=== PATIENT | female | born 1940 | race Two or more races ===

== ENCOUNTER 2021-08-01 20:19 | Emergency (ER) | payer OTHER ==
[~2021-08-01] VITALS: Ht 160 cm; Wt 49.9 kg
[2021-08-01 22:45] VITALS: BP 156/62
== END 2021-08-01 23:23 | disposition home or self-care (01) ==
LOC: EDBD 20:19 → ER 20:28
DX: S01.111A Laceration without foreign body of right eyelid and periocular area, initial encounter (principal); N18.9 Chronic kidney disease, unspecified; W01.0XXA Fall on same level from slipping, tripping and stumbling without subsequent striking against object, initial encounter; Y93.89 Activity, other specified; Y92.89 Other specified places as the place of occurrence of the external cause; Y99.8 Other external cause status
CPT/HCPCS: 70450; 72125; 93005

== ENCOUNTER 2024-03-26 10:44 | Inpatient (IN) | payer OTHER ==
[~2024-03-26] VITALS: Ht 162.6 cm; Wt 50.9 kg
[~2024-03-26 10:44] MED LIST: METF-372 PO; PREG50CA PO; SIMV20TA20 PO
--- NOTE | 2024-03-26 11:03 | ED.PDOC ---
Altered Mental Status HPI Comments 83y F who presents to the ED via EMS for chief complaint of ALOC. Per EMS, pt lives with family and pt son went to check up on her and states he found her altered and called EMS. EMS upon arrival, checked pt vitals and noted pt had Accu check of 135 but noted pt had 02 sat in the 70's% and pt was placed on 15 L via nrb and brought to the ED. Pt has noted GCS of 13 upon arrival to the ED but is not answering questions at this time despite being alert and oriented. Pt son states pt has been having flu-like symptoms with noted cough and congestion for the past 3-4 days but has been to evaluated by any provider for it yet. Pt family also states pt had fall 1 days prior with no noted loss of consciousness. . Pt has noted history of dementia Time Seen by MD: 10:58 Primary Care Provider: ALEK Reviewed Notes: Nurses Notes Allergies: Coded Allergies: NO KNOWN ALLERGIES (Unverified , 08/01/21) Information Source: Emergency Med Personnel Mode of Arrival: EMS Brought in by: EMS Past Medical History PAST MEDICAL HISTORY: CKF, Dementia Surgical History: Denies all surgeries QUAIL FARMER History: No Pertinent QUAIL FARMER History Family History Family History: Reviewed,noncontributory to illness Social History Smoker: Non-Smoker Alcohol: Denies ETOH Use Drugs: Denies Drug Use Lives In: Home Constitutional: reports: malaise, weakness; denies: chills, diaphoresis, fatigue, fever, sweats, others EENTM: denies: blurred vision, double vision, ear bleeding, ear discharge, ear drainage, ear pain, ear ringing, eye pain, eye redness, hearing loss, mouth pain, mouth swelling, nasal discharge, nose bleeding, nose congestion, nose pain, photophobia, tearing, throat pain, throat swelling, voice changes, others Respiratory: denies: cough, hemoptysis, orthopnea, SOB at rest, shortness of breath, SOB with excertion, stridor, wheezing, others Cardiovascular: denies: chest pain, dizzy spells, diaphoresis, Dyspnea on exertion, edema, irregular heart beat, left arm pain, lightheadedness, palpitations, PND, syncope, others Gastrointestinal: denies: abdomen distended, abdominal pain, blood streaked bowels, constipated, diarrhea, dysphagia, difficulty swallowing, hematemesis, melena, nausea, poor appetite, poor fluid intake, rectal bleeding, rectal pain, vomiting, others Genitourinary: denies: abnormal vagina bleeding, burning, dyspareunia, dysuria, flank pain, frequency, hematuria, incontinence, pain, , vagina discharge, urgency, others Neurological: denies: dizziness, fainting, headache, left sided numbness, left sided weakness, numbness, paresthesia, pre-existing deficit, right sided numbness, right sided weakness, seizure, speech problems, tingling, tremors, weakness, others Musculoskeletal: denies: back pain, gout, joint pain, joint swelling, muscle pain, muscle stiffness, neck pain, others Integumetry: denies: bruises, change in color, change in hair/nails, dryness, laceration, lesions, lumps, rash, wounds, others Allergic/Immunocompromised: denies: Difficulty Healing, Frequent Infections, H raghav, Itching, others Hematologic/Lymphatic: denies: anemia, blood clots, easy bleeding, easy bruising, swollen glands, others Endocrine: denies: excessive hunger, excessive sweating, excessive thirst, excessive urination, flushing, intolerance to cold, intolerance to heat, unexplained weight gain, unexplained weight loss, others Psychiatric: denies: anxiety, bipolar disorder, depression, hopeless, panic disorder, schizophrenia, sleepless, suicidal, others All Other Systems: Reviewed and Negative Physical Exam General Appearance: Moderate Distress HEENT: Normal ENT Inspection, Pharynx Normal, TMs Normal Neck: Full Range of Motion, Non-Tender, Normal, Normal Inspection Respiratory: Chest Non-Tender, Lungs Clear, No Accessory Muscle Use, No Respiratory Distress, Normal Breath Sounds Cardiovascular: No Edema, No JVD, No Murmur, No Gallop, Normal Peripheral Pulses, Regular Rate/Rhythm Breast Exam: Deferred Gastrointestinal: No Organomegaly, Non Tender, No Pulsatile Mass, Normal Bowel Sounds, Soft Genitalia: Deferred Pelvic: Deferred Rectal: Deferred Extremities: No pedal edema Musculoskeletal : Apperance: Normal Neurologic: Disoriented Cerebellar Function: NOT DONE Reflexes: NOT DONE Skin: Dry, Normal Color, Warm Lymphatic: No Adenopathy Was a procedure done? Was a procedure done?: No Differential Diagnosis (ALOC) Differential Diagnosis: Dehydration, Hypoglycemia, Encephalopathy, Sepsis, Hypoxemia, Renal Failure Other Differential Diagnosis , metabolic encephalopathy, acute respiratory failure, viral syndrome, UTI, COVID, Influenza A and B X-Ray, Labs, Meds, VS Vital Signs Date Time Temp Pulse Resp B/P (MAP) Pulse Ox O2 Delivery O2 Flow Rate FiO2 03/26/24 16:00 111 28 115/48 (70) 100 03/26/24 14:00 108 28 100/47 (64) 100 03/26/24 13:20 99.8 03/26/24 12:38 127 03/26/24 12:15 99.4 03/26/24 12:03 129 28 97 Non-Rebreather 15 N/A 03/26/24 12:03 129 28 147/62 (90) 98 03/26/24 11:39 102.8 127 31 120/51 (74) 95 102.8 03/26/24 10:54 125 03/26/24 10:44 98.4 122 16 140/62 (88) 98 Lab Test 03/26/24 16:12 03/26/24 10:59 Range/Units POC Glucose 188 H 70-106 mg/dl White Blood Count 1.2 *L 4.4-10.8 10^3/uL Red Blood Count 3.42 L 4.0-5.20 10^6/uL Hemoglobin 10.4 L 12.2-16.2 g/dL Hematocrit 32.2 L 36.0-46.0 % Mean Corpuscular Volume 94.1 80.0-100.0 fL Mean Corpuscular Hemoglobin 30.4 28.0-32.0 pg Mean Corpuscular Hemoglobin Concent 32.3 32.0-36.0 g/dL Red Cell Distribution Width 16.8 H 11.8-14.3 % Platelet Count 173 140-450 10^3/uL Mean Platelet Volume 9.2 6.9-10.8 fL Neutrophils (%) (Auto) 37.0-80.0 % Lymphocytes (%) (Auto) 10.0-50.0 % Monocytes (%) (Auto) 0.0-12.0 % Basophils (%) (Auto) 0.0-2.0 % Neutrophils # (Auto) 1.6-8.6 10 ^3/uL Lymphocytes # (Auto) 0.4-5.4 10 ^3/uL Monocytes # (Auto) 0-1.3 10 ^3/uL Differential Total Cells Counted 100.0 100 Neutrophils % (Manual) 79 37.0-80.0 Band Neutrophils % (Manual) 0 Lymphocytes % (Manual) 18 10.0-50.0 Monocytes % (Manual) 2 0-12 Eosinophils % (Manual) 0 0-7 Basophils % (Manual) 0 0.0-2.0 Metamyelocytes % (manual) 1 Myelocytes % (Manual) 0 Promyelocytes % (Manual) 0 Blast Cells % (Manual) 0 Nucleated Red Blood Cells 1.0 % Reactive Lymphocytes 0 Platelet Estimate Adequate Ovalocytes P Sodium Level 140 136-145 mmol/L Potassium Level 4.6 3.5-5.1 mmol/L Chloride Level 110 H 98-107 mmol/L Carbon Dioxide Level 19 L 20-31 mmol/L Anion Gap 11 5-15 Blood Urea Nitrogen 75 H 9-23 mg/dL Creatinine 3.11 H 0.550-1.02 mg/dL Glomerular Filtration Rate Calc 14 >90 mL/min BUN/Creatinine Ratio 24.1 H 10.0-20.0 Serum Glucose 208 H 74-106 mg/dL Calcium Level 10.2 8.7-10.4 mg/dL Troponin I High Sensitivity 846 *H </=34 ng/L Plasma/Serum Blood Alcohol < 3.0 <10 mg/dL Current Medications Medications (Trade) Dose Ordered Sig/Michael Route Start Time Stop Time Status Last Admin Acetaminophen (Tylenol Suppository) 650 mg ONCE ONCE AR 03/26/24 11:30 03/26/24 11:33 DC 03/26/24 12:15 Enoxaparin Sodium (Lovenox) 70 mg ONCE ONCE SC 03/26/24 14:15 03/26/24 14:16 DC 03/26/24 14:15 Ceftriaxone Sodium 50 ml @ 100 mls/hr ONCE ONCE IV 03/26/24 14:15 03/26/24 14:44 DC 03/26/24 14:15 Azithromycin 250 ml @ 125 mls/hr ONCE ONCE IV 03/26/24 14:15 03/26/24 16:14 DC 03/26/24 14:15 CHEST RADIOGRAPH IMPRESSION: Multifocal airspace disease. Patient disoriented. Vitals stable. Unable to get a good history. Moving all extremities. Chest x-ray reveals pneumonia. Has fever. Cardiac marker elevated. Establish intravenous access. Was given fluids. Was given Rocephin. Was given azithromycin. Cardiac marker elevated. BUN creatinine elevated. ABG. Metabolic acidosis. Reviewed her history. Waiting for family. EKG reviewed shows chronic changes. CT of the head reviewed does not show any acute changes. Time of 1ST Reevaluation: 11:30 Reevaluation 1ST: Unchanged Patient Education/Counseling: Diagnosis, Treatment Family Education/Counseling: No Family Present Additional Information - I reviewed the following notes from patient's past medical encounters: - The following tests were ordered, and results were reviewed by me: (Labs, X- Ray, EKG): EKG x1, influenza A and B, COVID, BMP, blood alcohol, CT head without contrast, UA,CBC, troponin x1 - Additional information was gathered from interviewing the following independent Historian: (Family, Other Providers, EMT): EMS - I reviewed and agreed with the following test results read by other provider: (X-ray, CT, US): radiologist - I discussed treatments and results with medical personnel and: (consultants, family): none Departure 1 Departure Time of Disposition: 14:10 Impression: Primary Impression: Metabolic encephalopathy Additional Impressions: Pneumonia Qualified Codes: J18.9 - Pneumonia, unspecified organism Demand ischemia Disposition: ADMITTED INPATIENT Admit to: Med Surg Condition: Guarded Critical Care Note Critical Care Time?: No Stability Stability form required: No Heart Score Heart Score: Heart Score Response (Comments) Value History N/A 0 EKG N/A 0 Age N/A 0 Risk Factors N/A 0 Troponin N/A 0 Total 0 I personally scribed for EVELIN CUNNINGHAM MD (YOVANY) on 03/26/24 at 11:03. Electronically submitted by Greg Goodson ([facility]). I personally scribed for EVELIN CUNNINGHAM MD (YOVANY) on 03/26/24 at 11:15. Electronically submitted by Greg VIEYRA). I personally scribed for EVELIN CUNNINGHAM MD (YOVANY) on 03/26/24 at 11:38. Electronically submitted by Greg VIEYRA). EVELIN CUNNINGHAM MD Mar 26, 2024 11:03
[2024-03-26 11:24] LABS: Hemoglobin 10.4 g/dL (12.2-16.2); Mean Corpuscular Hemoglobin 30.4 pg (28.0-32.0); Red Blood Cells 3.42 10^6/uL (4.0-5.20)
--- NOTE | 2024-03-26 11:25 | DVH ---
CHEST RADIOGRAPH Indication: sob Technique: Single frontal view of the chest was obtained COMPARISON: None FINDINGS: Lines and Tubes: None Lungs: Multifocal airspace disease. Pleura: No effusion. No pneumothorax. Cardiomediastinal contours: Unremarkable Bones: Unremarkable IMPRESSION: Multifocal airspace disease.
[2024-03-26 11:26] LABS: Hematocrit 32.2 % (36.0-46.0); Mean Corpuscular Hgb Conc. 32.3 g/dL (32.0-36.0); Mean Corpuscular Volume 94.1 fL (80.0-100.0); Platelet Count (auto) 173 10^3/uL (140-450); Red Cell Distribution Width 16.8 % (11.8-14.3)
[2024-03-26 11:33] LABS: Potassium 4.6 mmol/L (3.5-5.1); Sodium 140 mmol/L (136-145)
[2024-03-26 11:34] LABS: Anion Gap 11 (5-15)
[2024-03-26 11:35] LABS: Calcium 10.2 mg/dL (8.7-10.4)
[2024-03-26 11:37] LABS: Carbon Dioxide 19 mmol/L (20-31); Chloride 110 mmol/L (98-107)
[2024-03-26 11:38] LABS: White Blood Cell 1.2 10^3/uL (4.4-10.8)
[2024-03-26 11:39] LABS: Band Neutrophils % (manual) 0; Basophils % (manual) 0 (0.0-2.0); Blast Cells 0; Eosinophils % (manual) 0 (0-7); Myelocytes % 0; Promyelocytes % 0; Reactive Lymphocytes 0
[2024-03-26 11:40] LABS: BUN/Creatinine Ratio 24.1 (10.0-20.0); Blood Urea Nitrogen 75 mg/dL (9-23); Glucose 208 mg/dL (74-106)
[2024-03-26 11:42] LABS: Blood Alcohol < 3.0 mg/dL (<10)
[2024-03-26 12:03] VITALS: PULSE 129; RESP 28; O2SAT 97
[2024-03-26] MEDS: ACETAMINOPHEN 650 MG RECT SUPP PR ONE (12:15)
[2024-03-26 13:20] LABS: Lymphocytes % (manual) 18 (10.0-50.0); Metamyelocytes % 1; Monocytes % (manual) 2 (0-12)
[2024-03-26 13:21] LABS: Ovalocytes P; Platelet Estimate Adequate
--- NOTE | 2024-03-26 13:43 | DVH ---
EXAM: CT HEAD WITHOUT CONTRAST HISTORY: altered COMPARISON: HEAD WITHOUT CONTRAST on DOS: 08/01/21, CERVICAL WITHOUT CONTRAST on DOS: 08/01/21 TECHNIQUE: Axial images were obtained and reformatted in coronal and sagittal planes. All CT scans at this medical facility are performed using dose modulation techniques as appropriate t o a performed exam including the following: Automated exposure control was utilized; adjustment of th e MA and/or KV according to patient size; and use of iterative reconstruction technique. CT Dose: CTDI volume is 51 mGy. Dose-length product is 900 mGy*cm FINDINGS: Supratentorial Region: No evidence for large acute territorial ischemia. No intracranial hemorrhage is noted. Posterior Fossa: No acute abnormality. Brainstem: Unremarkable. Sellar/Suprasellar Region: Unremarkable. Ventricles, Cisterns, Sulci: Age-appropriate. Orbits: Unremarkable. Paranasal Sinuses: Unremarkable. Mastoid Air Cells: Unremarkable. Vasculature: Unremarkable. Bones/Soft Tissues: No acute abnormality. Other: None. IMPRESSION: 1. No acute intracranial process.
[2024-03-26] MEDS: cefTRIAXone 1GM/50ML D5W 50 ML IV ONE (14:15)
[2024-03-26] MEDS: AZITHROMYCIN 500MG/ 250ML 250 ML IV ONE (14:15)
[2024-03-26] MEDS: ENOXAPARIN SOD 80 MG/0.8ML SYRINGE SC ONE (14:15)
[2024-03-26] MEDS ORDERED: NITROGLYCERIN 0.4 MG SL TAB SL PRN (17:00)
[2024-03-26] MEDS ORDERED: DOCUSATE SOD 100 MG CAP PO PRN (17:00)
[2024-03-26] MEDS ORDERED: HYDROcodone-ACET 5/325MG TAB PO PRN (17:00)
[2024-03-26] MEDS: methylPREDNISolone SOD SUCC 125 MG/2 ML VL IV ONE (17:00)
[2024-03-26] MEDS ORDERED: ONDANSETRON HCL 4 MG/2 ML VIAL IV PRN (17:00)
[2024-03-26] MEDS ORDERED: MORPHINE SULFATE INJ 2 MG/ml SYRG IV PRN (17:00)
[2024-03-26] MEDS ORDERED: DEXTROSE (50%) 50ML SYRG IV PRN (17:00)
--- NOTE | 2024-03-26 17:07 | DVHHP2 ---
History of Present Illness Reason for Visit: Acute respiratory failure with hypoxia History of Present Illness The patient is a 83-year-old female with past medical history of chronic kidney disease, dementia, diabetes mellitus, and hypertension who presented to [facility] ED for evaluation of altered level of consciousness. Patient's sons reports he went to check up on his mother and found her altered and called EMS. When EMS arrived on the scene, patient was hypoxic O2 saturation in the 70s and was placed on 15 L non-rebreather and brought to our facility ED. Patient's son reports symptoms started from him and spread to the whole family including his mother with flu-like symptoms, nonproductive cough, nasal congestion for the past 3-4 days. Patient was seen and evaluated in the ED, laboratory data shows WBC 1.2, platelets 173, sodium 140, potassium 0.6, BUN 75, creatinine 3.11, GFR 14, glucose 208, troponin 846, blood pressure 147/62, heart rate 129 trending down to 110, temperature 102.8 F trending down to 99 0.8 F, O2 saturation 98% on non-rebreather. Chest x-ray revealing multifocal airspace disease. Patient was started on IV antibiotic regimen azithromycin, please see medication orders section in the computer. On my assessment, son at bedside, patient denies chest pain, no dizziness, diaphoresis, currently on oxygen, no diarrhea, no nausea, no vomiting, no chills. Patient was admitted for further evaluation and medical management. Past Medical History CKF, Dementia, DM, HTN, Past Surgical History Denies all surgeries Family History Reviewed, noncontributory to the management of this case. Past Social History The patient lives at home, denies smoking, alcohol or illicit drugs abuse. Review of Systems Constitutional: Yes: Weakness, Malaise; No: Fever, Chills, Sweats, Other Eyes: No: Pain, Vision change, Conjunctivae inflammation, Eyelid inflammation, Other, Redness ENT: No: Ear pain, Ear discharge, Nose pain, Nose discharge, Nose congestion, Mouth pain, Mouth swelling, Throat pain, Throat swelling, Other Respiratory: Cough, Shortness of breath, SOB with excertion, Other (SOB at rest); No: Dry, Wheezing, Hemoptysis, Pleuritic Pain, Sputum, Wheezing Cardiovascular: No: Chest Pain, Palpitations, Orthopnea, Paroxysmal Noc. Dyspnea, Edema, Lt Headedness, Other Gastrointestinal: No: Nausea, Vomiting, Abdominal Pain, Diarrhea, Constipation, Melena, Hematochezia, Other Genitourinary: No Dysuria, No Frequency, No Incontinence, No Hematuria, No Retention, No Other Musculoskeletal: No: other, neck pain, shoulder pain, arm pain, back pain, hand pain, leg pain, foot pain Skin: No: Rash, Lesions, Jaundice, Bruising, Other Neurological: No: Weakness, Numbness, Incoordination, Change in speech, Confusion, Seizures, Other Allergies: Coded Allergies: NO KNOWN ALLERGIES (Unverified , 08/01/21) Exam Vital Signs Vital Signs Date Time Temp Pulse Resp B/P (MAP) Pulse Ox O2 Delivery O2 Flow Rate FiO2 03/26/24 13:20 99.8 03/26/24 12:38 127 03/26/24 12:03 28 97 Non-Rebreather 15 N/A 03/26/24 12:03 147/62 (90) General Appearance: Alert, Oriented X3, Cooperative, No acute distress HEENT: Atraumatic, PERRLA, EOMI, Mucous membr. moist/pink Respiratory: Normal air movement, Other (Diminished breath sounds) Cardiovascular: Regular rate, Normal S1, Normal S2, No murmurs Abdominal: Normal bowel sounds, Soft, No tenderness, No hepatospenomegaly, No masses Extremities: No clubbing, No cyanosis, No edema, Normal pulses, No tenderness/swelling Skin: No rashes, No breakdown, No significant lesion Neuro: Normal speech, Normal tone, Sensation intact, Cranial nerves 3-12 NL, Reflexes 2+, Other (Generalized weakness) Psych/Mental Status: Mental status NL, Mood NL Labs/Xrays Labs Test 03/26/24 16:12 03/26/24 10:59 Range/Units POC Glucose 188 H 70-106 mg/dl White Blood Count 1.2 *L 4.4-10.8 10^3/uL Red Blood Count 3.42 L 4.0-5.20 10^6/uL Hemoglobin 10.4 L 12.2-16.2 g/dL Hematocrit 32.2 L 36.0-46.0 % Mean Corpuscular Volume 94.1 80.0-100.0 fL Mean Corpuscular Hemoglobin 30.4 28.0-32.0 pg Mean Corpuscular Hemoglobin Concent 32.3 32.0-36.0 g/dL Red Cell Distribution Width 16.8 H 11.8-14.3 % Platelet Count 173 140-450 10^3/uL Mean Platelet Volume 9.2 6.9-10.8 fL Neutrophils (%) (Auto) 37.0-80.0 % Lymphocytes (%) (Auto) 10.0-50.0 % Monocytes (%) (Auto) 0.0-12.0 % Basophils (%) (Auto) 0.0-2.0 % Neutrophils # (Auto) 1.6-8.6 10 ^3/uL Lymphocytes # (Auto) 0.4-5.4 10 ^3/uL Monocytes # (Auto) 0-1.3 10 ^3/uL Differential Total Cells Counted 100.0 100 Neutrophils % (Manual) 79 37.0-80.0 Band Neutrophils % (Manual) 0 Lymphocytes % (Manual) 18 10.0-50.0 Monocytes % (Manual) 2 0-12 Eosinophils % (Manual) 0 0-7 Basophils % (Manual) 0 0.0-2.0 Metamyelocytes % (manual) 1 Myelocytes % (Manual) 0 Promyelocytes % (Manual) 0 Blast Cells % (Manual) 0 Nucleated Red Blood Cells 1.0 % Reactive Lymphocytes 0 Platelet Estimate Adequate Ovalocytes P Sodium Level 140 136-145 mmol/L Potassium Level 4.6 3.5-5.1 mmol/L Chloride Level 110 H 98-107 mmol/L Carbon Dioxide Level 19 L 20-31 mmol/L Anion Gap 11 5-15 Blood Urea Nitrogen 75 H 9-23 mg/dL Creatinine 3.11 H 0.550-1.02 mg/dL Glomerular Filtration Rate Calc 14 >90 mL/min BUN/Creatinine Ratio 24.1 H 10.0-20.0 Serum Glucose 208 H 74-106 mg/dL Calcium Level 10.2 8.7-10.4 mg/dL Troponin I High Sensitivity 846 *H </=34 ng/L Plasma/Serum Blood Alcohol < 3.0 <10 mg/dL PATIENT: ZORA THURSTON ACCT: [id number] UNIT: [id number] : 1940 LOC: ER ROOM / BED: / AGE / SEX: 83 / F ADM STATUS: REG ER SERVICE 1051 ORDERING PHYSICIAN: EVELIN CUNNINGHAM MD PROCEDURE(s): HWOCT - HEAD WITHOUT CONTRAST REASON: altered ORDER NUMBER(s): [id number], ACCESSION NUMBER(s): [id number] EXAM: CT HEAD WITHOUT CONTRAST HISTORY: altered COMPARISON: HEAD WITHOUT CONTRAST on DOS: 08/01/21, CERVICAL WITHOUT CONTRAST on DOS: 08/01/21 TECHNIQUE: Axial images were obtained and reformatted in coronal and sagittal planes. All CT scans at this medical facility are performed using dose modulation techniques as appropriate to a performed exam including the following: Automated exposure control was utilized; adjustment of the MA and/or KV according to patient size; and use of iterative reconstruction technique. CT Dose: CTDI volume is 51 mGy. Dose-length product is 900 mGy*cm FINDINGS: Supratentorial Region: No evidence for large acute territorial ischemia. No intracranial hemorrhage is noted. Posterior Fossa: No acute abnormality. Brainstem: Unremarkable. Sellar/Suprasellar Region: Unremarkable. Ventricles, Cisterns, Sulci: Age-appropriate. Orbits: Unremarkable. Paranasal Sinuses: Unremarkable. Mastoid Air Cells: Unremarkable. Vasculature: Unremarkable. Bones/Soft Tissues: No acute abnormality. Other: None. IMPRESSION: 1. No acute intracranial process. ORDERING PHYSICIAN: EVELIN CUNNINGHAM MD PROCEDURE(s): CXRP - CHEST PORTABLE REASON: sob ORDER NUMBER(s): [id number], ACCESSION NUMBER(s): [id number] CHEST RADIOGRAPH Indication: sob Technique: Single frontal view of the chest was obtained COMPARISON: None FINDINGS: Lines and Tubes: None Lungs: Multifocal airspace disease. Pleura: No effusion. No pneumothorax. Cardiomediastinal contours: Unremarkable Bones: Unremarkable IMPRESSION: Multifocal airspace disease. Assessment/Plan Assessment/Plan Metabolic encephalopathy Leukopenia Pneumonia, unspecified organism Demand ischemia Generalized weakness Acute on chronic renal failure Acute respiratory failure with hypoxia Diabetes mellitus with hyperglycemia Plan 1. Admit to telemetry unit 2. Breathing treatment 3. Pain control management 4. IV antibiotic management 5. Management of fluids and electrolytes 6. Consultation for pulmonology/nephrology 7. Diagnostic test chest x-ray 8. DVT prophylaxis -on heparin 9. Repeat labs CBC, CMP in a.m. 10. Home medication reviewed and reconciled 11. Continue with current medical management 12. Treatment plan discussed with patient and RN. Patient verbalized understanding. Plan discussed with: Patient, Other (RN) My Orders Orders - GIOVANY PISANO DNP Procedure Category Date Status Time Azithromycin 500mg/ PHA 03/27/24 Verified 250ml (Zithromax 50 10:00 Ceftriaxone Ivpb PHA 03/27/24 Verified Rocephin 09:00 Methylprednisolone PHA 03/26/24 Verified Sod Succ (Solu Medrol 17:00 Methylprednisolone PHA 03/26/24 Verified Sod Succ (Solu Medrol 22:00 Heparin Sodium PHA 03/26/24 Verified (Porcine) 22:00 *Consult CONS 03/26/24 Verified / 16:54 *[facility] CONS 03/26/24 Verified -[place] 16:54 Famotidine Injection PHA 03/26/24 Verified (Pepcid Injection) 22:00 Consistent DIET 03/26/24 Verified Carb(Ccho)Diabetes Dinner Glucose Blood PHA 03/26/24 Verified (Accu-Chek Comfort 20:00 Moderate Insulin Ss PHA 03/26/24 Verified 20:00 Dextrose 50% Syringe PHA 03/26/24 Verified 17:00 Admit ADMIT 03/26/24 Verified 16:54 Allergies JUAN M 03/26/24 Verified 16:54 Code Status CODE 03/26/24 Verified 16:54 Sodium Chloride Lock PHA 03/26/24 Verified (Saline Lock Ns) 22:00 Oxygen Per Hour RT 03/26/24 Verified 16:54 Hydrocodone-Acet PHA 03/26/24 Verified 5/325mg Tab ([place] 17:00 Ondansetron Hcl PHA 03/26/24 Verified (Zofran) 17:00 Docusate Sodium PHA 03/26/24 Verified Capsule (Colace 17:00 Fall Risk Precautions JUAN M 03/26/[address] 16:54 Complete Blood Count LAB 03/27/24 Verified 04:00 Comprehensive LAB 03/27/24 Verified Metabolic Panel 04:00 Condition: Serious JUAN M 03/26/24 Verified 16:54 Acetaminophen Tablet PHA 03/26/24 Verified (Tylenol Tablet) 17:00 Sequential JUAN M 03/26/24 Verified Compression Device Nitroglycerin PHA 03/26/24 Verified Sublingual (Ntrostat 17:00 Morphine Sulfate PHA 03/26/24 Verified Injection 17:00 Notify Of Changes [facility] 03/26/24 Verified From Base 16:54 Exhauster For [facility] 03/26/24 Verified 24 Hours 16:54 Emergency Dysrhythmia [facility] 03/26/24 Verified Protocol 16:54 Rhythm Strips Once [facility] 03/26/24 Verified Every Shift 16:54 Oxygen By Nasal RT 03/26/24 Verified Cannula 16:54 Troponin-I Hs LAB 03/26/24 Verified 16:54 Troponin-I Hs LAB 03/26/24 Verified 22:45 Problem List: (1) Metabolic encephalopathy (2) Leukopenia (3) Acute respiratory failure with hypoxia (4) Generalized weakness (5) Demand ischemia (6) Pneumonia, unspecified organism (7) Acute on chronic renal failure (8) Diabetes mellitus with hyperglycemia Date of Service: Mar 26, 2024 Billing Provider: GIOVANY PISANO DNP Common Visit Codes: [id number] INP/OBS CARE (HIGH) GIOVANY PISANO DNP Mar 26, 2024 17:07
--- NOTE | 2024-03-26 17:11 | DVHINCON2 ---
Date Seen: Mar 26, 2024 Referring Physician MD Burak Reason for Consultation NSTEMI History of Present Illness This is an 83-year-old female patient who presents to emergency room with chief complaint of altered level of mentation. The patient lives with her son and his . According to the son who was at bedside, the family has been sick since . The patient began having symptoms of generalized weakness, decreased appetite, and fever since 03/23/24 (3 days). He mentioned that yesterday the patient was found on the living room floor and started showing signs of confusion. Today, the patient became even more altered and began having slurred speech which prompted the family to have the patient come to the emergency room. Upon emergency room arrival, a twelve lead electrocardiogram reveals sinus tachycardia with right bundle branch block. Cardiology is now being consulted for elevated troponin. Initial troponin level of 846ng/L. Significant past medical history includes hypertension, type 2 diabetes mellitus, uterine prolaps e, arthritis, and gout. Past Medical History Past medical history reviewed. No other significant than mentioned above. Past Surgical History Denies Family History Family history reviewed. Social History Denies the use of tobacco, alcohol or illicit drugs. Allergies: Coded Allergies: NO KNOWN ALLERGIES (Unverified , 08/01/21) Home Meds Home medications reviewed. Review of Systems Constitutional: Generalized weakness Ears, Nose, & Throat: No symptom reported Eyes: No symptom reported Neurological: Altered level of mentation, slurred speech Pulmonary/Respiratory: No symptoms reported Cardiovascular: No symptom reported Gastrointestinal: No symptom reported Genitourinary: No symptom reported Musculoskeletal: No symptom reported Skin: No symptom reported Psychiatric: No symptom reported Endocrine: No symptom reported Hematologic/Lymphatic: No symptom reported Vital Signs Vital Signs Date Time Temp Pulse Resp B/P (MAP) Pulse Ox O2 Delivery O2 Flow Rate FiO2 03/26/24 13:20 99.8 03/26/24 12:38 127 03/26/24 12:03 28 97 Non-Rebreather 15 N/A 03/26/24 12:03 147/62 (90) Physical Exam General Appearance: Cooperative. Well-developed. Well-nourished. No acute distress. Pulmonary/Respiratory: Diminished lung sounds throughout, on 15 L non-re breather at time of assessment Cardiovascular/Chest: Regular rate and rhythm. Peripheral Pulses: 2+ Radial (R). 2+ Radial (L). 2+ Pedal (R). 2+ Pedal (L) Abdominal Exam: Normal bowel sounds. Ankle Exam: Negative ankle edema Lower extremities: Negative lower extremity edema Neuro/Mental Status: A/OX1, confused Thoughts/Psych: Deferred Appearance: No acute distress. Skin Exam: Normal inspection. Normal color. Warm and dry. Labs/Diagnostic Data Labs Test 03/26/24 16:12 03/26/24 10:59 Range/Units POC Glucose 188 H 70-106 mg/dl White Blood Count 1.2 *L 4.4-10.8 10^3/uL Red Blood Count 3.42 L 4.0-5.20 10^6/uL Hemoglobin 10.4 L 12.2-16.2 g/dL Hematocrit 32.2 L 36.0-46.0 % Mean Corpuscular Volume 94.1 80.0-100.0 fL Mean Corpuscular Hemoglobin 30.4 28.0-32.0 pg Mean Corpuscular Hemoglobin Concent 32.3 32.0-36.0 g/dL Red Cell Distribution Width 16.8 H 11.8-14.3 % Platelet Count 173 140-450 10^3/uL Mean Platelet Volume 9.2 6.9-10.8 fL Neutrophils (%) (Auto) 37.0-80.0 % Lymphocytes (%) (Auto) 10.0-50.0 % Monocytes (%) (Auto) 0.0-12.0 % Basophils (%) (Auto) 0.0-2.0 % Neutrophils # (Auto) 1.6-8.6 10 ^3/uL Lymphocytes # (Auto) 0.4-5.4 10 ^3/uL Monocytes # (Auto) 0-1.3 10 ^3/uL Differential Total Cells Counted 100.0 100 Neutrophils % (Manual) 79 37.0-80.0 Band Neutrophils % (Manual) 0 Lymphocytes % (Manual) 18 10.0-50.0 Monocytes % (Manual) 2 0-12 Eosinophils % (Manual) 0 0-7 Basophils % (Manual) 0 0.0-2.0 Metamyelocytes % (manual) 1 Myelocytes % (Manual) 0 Promyelocytes % (Manual) 0 Blast Cells % (Manual) 0 Nucleated Red Blood Cells 1.0 % Reactive Lymphocytes 0 Platelet Estimate Adequate Ovalocytes P Sodium Level 140 136-145 mmol/L Potassium Level 4.6 3.5-5.1 mmol/L Chloride Level 110 H 98-107 mmol/L Carbon Dioxide Level 19 L 20-31 mmol/L Anion Gap 11 5-15 Blood Urea Nitrogen 75 H 9-23 mg/dL Creatinine 3.11 H 0.550-1.02 mg/dL Glomerular Filtration Rate Calc 14 >90 mL/min BUN/Creatinine Ratio 24.1 H 10.0-20.0 Serum Glucose 208 H 74-106 mg/dL Calcium Level 10.2 8.7-10.4 mg/dL Troponin I High Sensitivity 846 *H </=34 ng/L Plasma/Serum Blood Alcohol < 3.0 <10 mg/dL Assessment NSTEMI, likely type II Rule out acute CVA Rule out structural heart disease Acute respiratory failure Hypertension RONNIE versus CKD Type 2 diabetes mellitus Arthritis Plan/Recommendation We will continue with the following plan/recommendations (Dr. Claire): Case discussed with . We will proceed with obtaining a transthoracic echocardiogram to evaluate cardiac function. Elevated troponin level likely secondary to demand mismatch ischemia from underlying disease process. We can not fully exclude NSTEMI type 1 at this time. We will continue with trending troponin level and keeping the patient on cardiac surveillance. Notify cardiology team immediately for any ECG changes. Antibiotics per primary care team. Pending rapid influenza and COVID swab. Thank you for allowing us to care for this patient. Please call with any questions or concerns. Critical care time spent: 43 minutes This medical document was created using an electronic medical record system with voice recognition software and computerized dictation system. Although this document has been carefully reviewed, there might still be some phonetic and typographical errors. Occasional wrong-word or ``sound-alike substitutions may have occurred due to the inherent limitations of voice recognition software. These areas are purely typographical due to imperfections of the software programs and do not reflect any compromise in the patient's medical care. Please read the chart carefully and recognize, using context, where these substitutions have occurred. Plan discussed with: PatientCatarino Date of Service: Mar 26, 2024 Billing Provider: RAJ CLAIRE MD Cardiology Common Codes: [id number] INP/OBS CARE (High) Cardiology Consultation Codes: [id number] CONSULT <45MIN [facility] Mar 26, 2024 17:11
--- NOTE | 2024-03-26 18:21 | ECG ---
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
[2024-03-26 18:43] LABS: Lactic Acid w/Reflex 3.5 mmol/L (0.4-2.0)
[2024-03-26] MEDS: InsuLIN REG 1unit/0.01ml Soln (100units/ml) SC SCH (20:00)
[2024-03-26] MEDS: ACCU-CHEK COMFORT CURVE STRIP VI SCH (21:06)
[2024-03-26 21:42] LABS: Rapid Influenza A Negative (Negative); Rapid Influenza B Negative (Negative)
[2024-03-26 21:43] LABS: COVID19 ANTIGEN SOFIA FIA NEGATIVE (NEGATIVE)
[2024-03-26] MEDS: FAMOTIDINE (10MG/ML) 2ML VL IV SCH (23:09)
[2024-03-26] MEDS: SODIUM CHLOR 0.9% PF (SALINE LOCK) 10ML VIAL/SYR IV SCH (23:14)
[2024-03-26] MEDS: methylPREDNISolone SOD SUCC 40 MG/ML VL IV SCH (23:16)
[2024-03-26] MEDS: HEPARIN SODIUM (PORCINE) 5000 UNITS/ML 1ML VIAL SC SCH (23:24)
--- NOTE | 2024-03-26 23:48 | DVHINCON2 ---
Date of service: Mar 26, 2024 Referring Physician EZRA Perez Reason for Consultation Hypoxia History of Present Illness 83 year old woman history of chronic kidney disease, dementia, diabetes mellitus type 2, hypertension who presented with altered mental status. She was found to be hypoxic. She had a pulse oximetry reading of 70%. He was initiated on 15 L non-rebreather. She was brought to the emergency department by EMS. Everyone in her family was having flu-like symptoms. Nonproductive cough. Nasal congestion for the last 3-4 days. Chest x-ray was notable for multifocal airspace opacities. She was initiated on IV antibiotics. Pulmonary consultation is called due to multifocal pneumonia and acute hypoxic respiratory failure. Review of systems: 14 point review of systems unable to be obtained due to patient's history of dementia and altered mental status. Past medical history: Chronic kidney disease, dementia, diabetes mellitus type 2, hypertension Past surgical history: Denies all surgeries. Medications: Reviewed Allergies: No known drug allergies. Family history: No family history of premature CAD. No family history of lung disease Social history: Nonsmoker. No alcohol or illicit drug use. Allergies: Coded Allergies: NO KNOWN ALLERGIES (Unverified , 08/01/21) Home Meds Reported Medications Pregabalin (Lyrica) 50 Mg Cap, 25 MG PO BID for 30 Days, #60 03/27/24 Simvastatin (Simvastatin) 20 Mg Tab, 1 TAB PO DAILY for 100 Days, #100 03/27/24 Metformin Hydrochloride (Metformin Hcl) 1,000 Mg Tab, 1 TAB PO DAILY for 100 Days, #100 03/27/24 Lisinopril (Lisinopril) 40 Mg Tab, 40 MG PO DAILY for 30 Days, MG 03/27/24 Allopurinol (Allopurinol) 300 Mg Tab, 300 MG PO DAILY, TAB 03/27/24 Empagliflozin (Jardiance) 25 Mg Tab, 12.5 MG PO DAILY, TAB 03/27/24 Trospium Chloride (Trospium Chloride) 20 Mg Tab, 20 MG PO HS, TAB 03/27/24 Amlodipine Besylate (Amlodipine Besylate) 2.5 Mg Tab, 1 TAB PO DAILY, #30 TAB 5 Refills 03/27/24 Glipizide (Glipizide) 10 Mg Tab, 10 MG PO, TAB 03/27/24 Current Medications Current Medications Medications (Trade) Dose Ordered Sig/Michael Route PRN Reason Start Time Stop Time Status Last Admin Azithromycin 250 ml @ 125 mls/hr DAILY IV 03/27/24 10:00 Ceftriaxone Sodium 50 ml @ 100 mls/hr DAILY@09 IV 03/27/24 09:00 Methylprednisolone Sodium Succinate (Solu Medrol) 40 mg Q8HR IV 03/26/24 22:00 03/26/24 23:16 Heparin Sodium (Porcine) 5,000 units Q12HR SC 03/26/24 22:00 03/26/24 23:24 Famotidine (Pepcid Injection) 10 mg DAILY IV 03/26/24 22:00 03/26/24 23:09 Diagnostic Test (Pha) (Accu-Chek Comfort Curve T) 1 strip IQ4HR 03/26/24 20:00 03/26/24 23:25 Insulin Human Regular (InsuLIN R) IQ4HR SC 03/26/24 20:00 03/26/24 23:30 Dextrose 50 ml UD PRN IV Blood Sugar LESS THAN 60 03/26/24 17:00 Sodium Chloride (Saline Lock Ns) 10 ml Q8HR IV 03/26/24 22:00 03/26/24 23:14 Acetaminophen/ Hydrocodone Bitart ([place] 5/325MG Tab) 1 tab Q4HP PRN PO MODERATE PAIN (4-6 PAIN SCALE) 03/26/24 17:00 Ondansetron HCl (Zofran) 4 mg Q4HP PRN IV NAUSEA / VOMITING 03/26/24 17:00 Docusate Sodium (Colace Capsule) 100 mg BIDPRN PRN PO FOR CONSTIPATION 03/26/24 17:00 Acetaminophen (Tylenol Tablet) 650 mg Q6HP PRN PO PAIN SCALE 1-3 OR TEMP>100.4 03/26/24 17:00 Nitroglycerin (Ntrostat Sublingual) 0.4 mg Q5MINP PRN SL FOR CHEST PAIN 03/26/24 17:00 Morphine Sulfate 2 mg Q30M PRN IV FOR CHEST PAIN 03/26/24 17:00 Vital Signs Vital Signs Date Time Temp Pulse Resp B/P (MAP) Pulse Ox O2 Delivery O2 Flow Rate FiO2 03/26/24 20:00 109 03/26/24 20:00 26 122/57 (78) 97 03/26/24 19:30 Nasal Cannula* 5 40 03/26/24 13:20 99.8 Physical Exam Gen.: Patient lying in bed in no apparent distress. On supplemental oxygen. Head: Normocephalic, atraumatic Eyes: EOMI/PERRLA. Ears: Normal hearing. Normal anatomy. Neck/trachea: Trachea midline, supple. Nose: Normal external anatomy. Mouth: Moist mucous membranes. Chest: Fair air entry bilaterally. No wheezing or rhonchi. Cardio vascular: Positive S1, positive S2. Regular rate and rhythm. Abdomen: Positive bowel sounds in all 4 quadrants. Soft, non-tender, non- distended. : Deferred. Rectal: Deferred Skin: Warm, dry. Extremities: 2+ radial pulses bilaterally. No lower extremity edema. Neuro: Awake, alert. No gross motor or sensory deficits. Cranial nerves II through XII intact. Gait not assessed. Labs/Diagnostic Data Labs Test 03/26/24 23:13 03/26/24 22:49 03/26/24 19:53 03/26/24 19:20 Range/Units POC Glucose 220 H 70-106 mg/dl Troponin I High Sensitivity 581 *H </=34 ng/L Lactic Acid Level 1.8 0.4-2.0 mmol/L Influenza Type A Antigen Negative Negative Influenza Type B Antigen Negative Negative SARS-CoV-2 Antigen (Rapid) Negative NEGATIVE Test 03/26/24 10:59 Range/Units White Blood Count 1.2 *L 4.4-10.8 10^3/uL Red Blood Count 3.42 L 4.0-5.20 10^6/uL Hemoglobin 10.4 L 12.2-16.2 g/dL Hematocrit 32.2 L 36.0-46.0 % Mean Corpuscular Volume 94.1 80.0-100.0 fL Mean Corpuscular Hemoglobin 30.4 28.0-32.0 pg Mean Corpuscular Hemoglobin Concent 32.3 32.0-36.0 g/dL Red Cell Distribution Width 16.8 H 11.8-14.3 % Platelet Count 173 140-450 10^3/uL Mean Platelet Volume 9.2 6.9-10.8 fL Neutrophils (%) (Auto) 37.0-80.0 % Lymphocytes (%) (Auto) 10.0-50.0 % Monocytes (%) (Auto) 0.0-12.0 % Basophils (%) (Auto) 0.0-2.0 % Neutrophils # (Auto) 1.6-8.6 10 ^3/uL Lymphocytes # (Auto) 0.4-5.4 10 ^3/uL Monocytes # (Auto) 0-1.3 10 ^3/uL Differential Total Cells Counted 100.0 100 Neutrophils % (Manual) 79 37.0-80.0 Band Neutrophils % (Manual) 0 Lymphocytes % (Manual) 18 10.0-50.0 Monocytes % (Manual) 2 0-12 Eosinophils % (Manual) 0 0-7 Basophils % (Manual) 0 0.0-2.0 Metamyelocytes % (manual) 1 Myelocytes % (Manual) 0 Promyelocytes % (Manual) 0 Blast Cells % (Manual) 0 Nucleated Red Blood Cells 1.0 % Reactive Lymphocytes 0 Platelet Estimate Adequate Ovalocytes P Sodium Level 140 136-145 mmol/L Potassium Level 4.6 3.5-5.1 mmol/L Chloride Level 110 H 98-107 mmol/L Carbon Dioxide Level 19 L 20-31 mmol/L Anion Gap 11 5-15 Blood Urea Nitrogen 75 H 9-23 mg/dL Creatinine 3.11 H 0.550-1.02 mg/dL Glomerular Filtration Rate Calc 14 >90 mL/min BUN/Creatinine Ratio 24.1 H 10.0-20.0 Serum Glucose 208 H 74-106 mg/dL Calcium Level 10.2 8.7-10.4 mg/dL B-Type Natriuretic Peptide 287.97 0-100 pg/mL Plasma/Serum Blood Alcohol < 3.0 <10 mg/dL Assessment Impression: Acute hypoxic respiratory failure Multifocal pneumonia, likely Gram-negative Leukopenia Demand ischemia Generalized weakness Acute on chronic kidney disease Diabetes mellitus with hyperglycemia Plan: Chest x-ray imaging report reviewed. Multifocal opacities. No pneumothorax. No pleural effusion. Supplemental oxygen line keep O2 saturation above 92%. Continue antibiotics Follow up cultures. Monitor WBC count. Bronchodilators. Monitor hemoglobin level. Monitor renal function Monitor ins and outs. Monitor electrolytes. Supplement as necessary. DVT prophylaxis. Prognosis: Poor given multiple comorbidities. Rest of plan per hospitalist and other consultants. Thank you EZRA Perez for allowing me to participate in this patient's care. Further recommendations will depend on patient's clinical course. Please do not hesitate to contact me if you have any questions or concerns. This medical document was created using an electronic medical record system with [employer] dictation system. Although this document has been carefully reviewed, there may still be some phonetic and typographical errors. These areas are purely typographical due to imperfections of the software programs, and do not reflect any compromise in the patient's medical care. Plan discussed with: Other (RN, RESEARCH PSYCHOLOGIST) JESS ZAMORA MD Mar 26, 2024 23:48
[2024-03-27] VITALS (9 sets, daily range): BP systolic 111–137; BP diastolic 49–64; PULSE 99–113; RESP 15–19; TEMP 97.4–98.4; O2SAT 96–100
[2024-03-27 06:54] LABS: Hematocrit 29.4 % (36.0-46.0); Hemoglobin 9.5 g/dL (12.2-16.2); Mean Corpuscular Hemoglobin 30.4 pg (28.0-32.0); Mean Corpuscular Hgb Conc. 32.5 g/dL (32.0-36.0); Mean Corpuscular Volume 93.7 fL (80.0-100.0); Platelet Count (auto) 154 10^3/uL (140-450); Red Blood Cells 3.13 10^6/uL (4.0-5.20); Red Cell Distribution Width 16.5 % (11.8-14.3); White Blood Cell 3.5 10^3/uL (4.4-10.8)
[2024-03-27 07:11] LABS: Basophils % (manual) 0 (0.0-2.0); Blast Cells 0; Eosinophils % (manual) 0 (0-7); Myelocytes % 0; Promyelocytes % 0; Reactive Lymphocytes 0
[2024-03-27 07:15] LABS: Alanine Aminotransferase 29 U/L (7-40); Anion Gap 11 (5-15); Calcium 9.8 mg/dL (8.7-10.4); Potassium 4.2 mmol/L (3.5-5.1); Sodium 141 mmol/L (136-145)
[2024-03-27 07:17] LABS: Albumin 3.8 g/dL (3.2-4.8)
[2024-03-27 07:18] LABS: Bilirubin, Total 0.4 mg/dL (0.2-1.0); Total Protein 6.7 g/dL (5.7-8.2)
[2024-03-27 07:19] LABS: Alkaline Phosphatase 39 U/L (46-116); Aspartate Aminotransferase 64 U/L (13-40); Blood Urea Nitrogen 76 mg/dL (9-23); Carbon Dioxide 18 mmol/L (20-31); Chloride 112 mmol/L (98-107); Glucose 176 mg/dL (74-106)
[2024-03-27 09:04] LABS: Band Neutrophils % (manual) 1; Lymphocytes % (manual) 6 (10.0-50.0); Metamyelocytes % 1; Monocytes % (manual) 3 (0-12); Platelet Estimate Adequate
[2024-03-27] MEDS: cefTRIAXone 1GM/50ML D5W 50 ML IV SCH (09:10)
[2024-03-27] MEDS: AZITHROMYCIN 500MG/ 250ML 250 ML IV SCH (09:13)
[2024-03-27] MEDS ORDERED: DEXTROSE (50%) 50ML SYRG IV PRN (10:00)
[2024-03-27] MEDS: FAMOTIDINE (10MG/ML) 2ML VL IV SCH (10:00)
[2024-03-27] MEDS ORDERED: SOD CHL 0.45% 1,000 ML IV SCH (10:00)
--- NOTE | 2024-03-27 10:03 | DVHPN2 ---
Progress Note Date Seen: Mar 27, 2024 Medical Necessity Reason Pt with a Central, PICC or Fol: Yes The following are medically ne: Kay Catheter Reason for kay catheter: Strict I&O Subjective Patient reports: No new complaints Review of Systems: HEENT:Normal, CVS:Normal, RESPIRATORY:Normal, GI:Normal, :Normal, MSK:Normal, NEURO:Normal Objective vital signs Vital Sign Date Time Temp Pulse Resp B/P (MAP) Pulse Ox O2 Delivery O2 Flow Rate FiO2 03/27/24 09:00 97.7 103 15 127/64 (85) 96 97.7 03/27/24 08:06 Nasal Cannula* 1 24 Total Intake and Output 03/26/24 03/26/24 03/27/24 15:00 23:00 07:00 Intake Total 300 ml 650 ml Output Total 650 ml Balance 300 ml 0 ml medications Current Medications Medications Dose Ordered Sig/Michael Route Start Time Stop Time Status Last Admin Dose Admin Azithromycin 250 ml @ 125 mls/hr DAILY IV 03/27/24 10:00 03/27/24 09:13 125 MLS/HR Ceftriaxone Sodium 50 ml @ 100 mls/hr DAILY@09 IV 03/27/24 09:00 03/27/24 09:10 100 MLS/HR Heparin Sodium (Porcine) 5,000 units Q12HR SC 03/26/24 22:00 03/27/24 09:24 5,000 UNITS Dextrose 50 ml UD PRN IV 03/26/24 17:00 Sodium Chloride 10 ml Q8HR IV 03/26/24 22:00 03/27/24 06:45 10 ML Acetaminophen/ Hydrocodone Bitart 1 tab Q4HP PRN PO 03/26/24 17:00 Ondansetron HCl 4 mg Q4HP PRN IV 03/26/24 17:00 Docusate Sodium 100 mg BIDPRN PRN PO 03/26/24 17:00 Acetaminophen 650 mg Q6HP PRN PO 03/26/24 17:00 Nitroglycerin 0.4 mg Q5MINP PRN SL 03/26/24 17:00 Morphine Sulfate 2 mg Q30M PRN IV 03/26/24 17:00 Diagnostic Test (Pha) 1 strip Q6HR 03/27/24 12:00 UNV Insulin Human Regular Q6HR SC 03/27/24 12:00 UNV Examination: GENERAL:Normal, HEENT:Normal, NECK:Normal, LUNGS:Normal, LUNGS:Abnormal (on oxygen), CVS:Normal, ABDOMEN:Normal, MSK:Normal, SKIN:Normal, NEURO:Normal, :Normal laboratory and microbiology Laboratory Tests 03/27/24 05:00 Test 03/27/24 05:00 Range/Units Serum Glucose 176 H 74-106 mg/dL Problem List/Assessment/Plan Problem List/Assessment/Plan #1 acute resp failure: cont oxygen #2 sepsis with pneumonia: iv antibiotics, sputum culture #3 acute renal failure ? vasomotor nephropathy: usg, ivf #4 dm: ssi #5 htn #6 encephalopathy- toxic/metabolic #7 anemia/lerukopenia #8 nstemi ?type 2 advance care planning- full code- time spent 19 mins Plan discussed with: Patient My Orders My Orders Orders - SHANAE BRYAN MD Procedure Category Date Status Time Glucose Blood PHA 03/27/24 Logged (Accu-Chek Comfort 12:00 Insulin R (Human) PHA 03/27/24 Logged (Insulin R) 12:00 Dextrose 50% Syringe PHA 03/27/24 Transmitted 10:00 Famotidine Injection PHA 03/27/24 Transmitted (Pepcid Injection) 10:00 Kidney US 03/27/24 Logged 09:46 1/2 Ns PHA 03/27/24 Transmitted 10:00 Urinalysis LAB 03/27/24 Uncollected 09:46 Basic Metabolic Panel LAB 03/28/24 Verified 06:00 PTPTT LAB 03/28/24 Verified 04:00 Complete Blood Count LAB 03/28/24 Verified 06:00 Chest Portable XY 03/28/24 Logged 06:00 Hemoglobin A1c LAB 03/28/24 Verified 06:00 Thyroid Stimulating LAB 03/28/24 Verified Hormone 05:00 Date of Service: Mar 27, 2024 Billing Provider: SHANAE BRYAN MD Common Visit Codes: [id number] INP/OBS CARE(HIGH) Secondary Visit Codes: [id number] CARE PLAN 30 MINUTES SHANAE BRYAN MD Mar 27, 2024 10:03
[2024-03-27 10:54] LABS: Urine Amorphous Crystal FEW /hpf (None Seen); Urine Bacteria MOD /hpf (None Seen); Urine Blood 2+ /uL (Negative); Urine Budding Yeast FEW /hpf (None Seen); Urine Clarity Turbid (Clear); Urine Protein, UAD 2+ (Negative); Urine Specific Gravity 1.013 (1.001-1.035); Urine Squamous Epithelial Cell FEW /hpf (<5); Urine Urobilinogen Normal (Negative); Urine WBC 38 /hpf (0 - 5)
[2024-03-27 10:56] LABS: Urine Color STRAW (Yellow)
--- NOTE | 2024-03-27 11:11 | DVHINCON2 ---
Date of service: Mar 27, [address] Hernandez Reason for Consultation Acute kidney injury History of Present Illness Patient is 83-year-old [place] female with past medical history of diabetes, hypertension, dementia and chronic kidney disease is admitted for altered level of consciousness. On admission patient found to have elevated BUN creatinine nephrology is consulted for acute kidney injury Past Medical History Diabetes mellitus, hypertension, chronic kidney disease, dementia Past Surgical History Unknown Allergies: Coded Allergies: NO KNOWN ALLERGIES (Unverified , 08/01/21) Current Medications Current Medications Medications (Trade) Dose Ordered Sig/Michael Route PRN Reason Start Time Stop Time Status Last Admin Azithromycin 250 ml @ 125 mls/hr DAILY IV 03/27/24 10:00 03/27/24 09:13 Ceftriaxone Sodium 50 ml @ 100 mls/hr DAILY@09 IV 03/27/24 09:00 03/27/24 09:10 Methylprednisolone Sodium Succinate (Solu Medrol) 40 mg Q8HR IV 03/26/24 22:00 03/27/24 09:56 DC 03/27/24 06:45 Heparin Sodium (Porcine) 5,000 units Q12HR SC 03/26/24 22:00 03/27/24 09:24 Famotidine (Pepcid Injection) 10 mg DAILY IV 03/26/24 22:00 03/27/24 09:56 DC 03/27/24 09:09 Diagnostic Test (Pha) (Accu-Chek Comfort Curve T) 1 strip IQ4HR 03/26/24 20:00 03/27/24 09:56 DC 03/27/24 08:19 Insulin Human Regular (InsuLIN R) IQ4HR SC 03/26/24 20:00 03/27/24 09:56 DC 03/27/24 09:24 Dextrose 50 ml UD PRN IV Blood Sugar LESS THAN 60 03/26/24 17:00 03/27/24 10:25 DC Sodium Chloride (Saline Lock Ns) 10 ml Q8HR IV 03/26/24 22:00 03/27/24 06:45 Acetaminophen/ Hydrocodone Bitart ([place] 5/325MG Tab) 1 tab Q4HP PRN PO MODERATE PAIN (4-6 PAIN SCALE) 03/26/24 17:00 Ondansetron HCl (Zofran) 4 mg Q4HP PRN IV NAUSEA / VOMITING 03/26/24 17:00 Docusate Sodium (Colace Capsule) 100 mg BIDPRN PRN PO FOR CONSTIPATION 03/26/24 17:00 Acetaminophen (Tylenol Tablet) 650 mg Q6HP PRN PO PAIN SCALE 1-3 OR TEMP>100.4 03/26/24 17:00 Nitroglycerin (Ntrostat Sublingual) 0.4 mg Q5MINP PRN SL FOR CHEST PAIN 03/26/24 17:00 Morphine Sulfate 2 mg Q30M PRN IV FOR CHEST PAIN 03/26/24 17:00 Diagnostic Test (Pha) (Accu-Chek Comfort Curve T) 1 strip Q6HR 03/27/24 12:00 Insulin Human Regular (InsuLIN R) Q6HR SC 03/27/24 12:00 Dextrose 50 ml UD PRN IV Blood Sugar LESS THAN 60 03/27/24 10:00 Famotidine (Pepcid Injection) 20 mg DAILY IV 03/27/24 10:00 Sodium Chloride 1,000 ml @ 75 mls/hr [id number] IV 03/27/24 10:00 Family History: Diabetes mellitus G8 MOTHER Hypertension G8 MOTHER Review of Systems All 12 item review of systems reviewed with the patient nonsignificant except what is mentioned in the history of present illness H&P Exam Vital Signs/I&O Vital Sign Date Time Temp Pulse Resp B/P (MAP) Pulse Ox O2 Delivery O2 Flow Rate FiO2 03/27/24 09:00 97.7 103 15 127/64 (85) 96 97.7 03/27/24 08:06 Nasal Cannula* 1 24 Intake and Output 03/26/24 03/27/24 19:00 07:00 Intake Total 950 ml Output Total 650 ml Balance 300 ml Intake Oral 650 ml IV Total 300 ml Output Urine Total 650 ml Stool Total 0 ml Physical Exam Patient is awake alert Lungs clear to auscultation bilaterally Cardiac exam regular rate and rhythm GI soft nontender Nino catheter Extremities no clubbing cyanosis or edema Neuro nonfocal Labs/Diagnostic Data Labs/Diagnostic Data Laboratory Tests Test 03/27/24 10:06 03/27/24 05:00 03/26/24 23:13 03/26/24 22:49 Range/Units Urine Color Straw Yellow Urine Clarity Turbid H Clear Urine pH 6.0 5.0-9.0 Urine Specific [place] 1.013 1.001-1.035 Urine Protein 2+ H Negative Urine Ketones Negative Negative Urine Blood 2+ H Negative /uL Urine Nitrite Negative Negative Urine Bilirubin Negative Negative Urine Urobilinogen Normal Negative mg/dL Urine Leukocyte Esterase 1+ Negative /uL Urine RBC 10 0 - 4 /hpf Urine WBC 38 0 - 5 /hpf Urine Squamous Epithelial Cells Few <5 /hpf Urine Amorphous Crystals Few None Seen /hpf Urine Bacteria Mod H None Seen /hpf Urine Yeast (Budding) Few None Seen /hpf Urine Glucose 3+ H Normal mg/dL White Blood Count 3.5 #L 4.4-10.8 10^3/uL Red Blood Count 3.13 L 4.0-5.20 10^6/uL Hemoglobin 9.5 L 12.2-16.2 g/dL Hematocrit 29.4 L 36.0-46.0 % Mean Corpuscular Volume 93.7 80.0-100.0 fL Mean Corpuscular Hemoglobin 30.4 28.0-32.0 pg Mean Corpuscular Hemoglobin Concent 32.5 32.0-36.0 g/dL Red Cell Distribution Width 16.5 H 11.8-14.3 % Platelet Count 154 140-450 10^3/uL Mean Platelet Volume 10.0 6.9-10.8 fL Neutrophils (%) (Auto) 37.0-80.0 % Lymphocytes (%) (Auto) 10.0-50.0 % Monocytes (%) (Auto) 0.0-12.0 % Basophils (%) (Auto) 0.0-2.0 % Neutrophils # (Auto) 1.6-8.6 10 ^3/uL Lymphocytes # (Auto) 0.4-5.4 10 ^3/uL Monocytes # (Auto) 0-1.3 10 ^3/uL Differential Total Cells Counted 100.0 100 Neutrophils % (Manual) 89 H 37.0-80.0 Band Neutrophils % (Manual) 1 Lymphocytes % (Manual) 6 L 10.0-50.0 Monocytes % (Manual) 3 0-12 Eosinophils % (Manual) 0 0-7 Basophils % (Manual) 0 0.0-2.0 Metamyelocytes % (manual) 1 Myelocytes % (Manual) 0 Promyelocytes % (Manual) 0 Blast Cells % (Manual) 0 Reactive Lymphocytes 0 Platelet Estimate Adequate Sodium Level 141 136-145 mmol/L Potassium Level 4.2 3.5-5.1 mmol/L Chloride Level 112 H 98-107 mmol/L Carbon Dioxide Level 18 L 20-31 mmol/L Anion Gap 11 5-15 Blood Urea Nitrogen 76 H 9-23 mg/dL Creatinine 2.62 H 0.550-1.02 mg/dL Glomerular Filtration Rate Calc 18 >90 mL/min BUN/Creatinine Ratio 29.0 H 10.0-20.0 Serum Glucose 176 H 74-106 mg/dL Calcium Level 9.8 8.7-10.4 mg/dL Total Bilirubin 0.4 0.2-1.0 mg/dL Aspartate Amino Transferase (AST) 64 H 13-40 U/L Alanine Aminotransferase (ALT) 29 7-40 U/L Alkaline Phosphatase 39 L 46-116 U/L Total Protein 6.7 5.7-8.2 g/dL Albumin 3.8 3.2-4.8 g/dL POC Glucose 220 H 70-106 mg/dl Troponin I High Sensitivity 581 *H </=34 ng/L Test 03/26/24 21:06 03/26/24 19:53 03/26/24 19:20 03/26/24 17:40 Range/Units POC Glucose 229 H 70-106 mg/dl Lactic Acid Level 1.8 3.5 *H 0.4-2.0 mmol/L Influenza Type A Antigen Negative Negative Influenza Type B Antigen Negative Negative SARS-CoV-2 Antigen (Rapid) Negative NEGATIVE Troponin I High Sensitivity 816 *H </=34 ng/L Test 03/26/24 16:12 03/26/24 10:59 Range/Units POC Glucose 188 H 70-106 mg/dl White Blood Count 1.2 *L 4.4-10.8 10^3/uL Red Blood Count 3.42 L 4.0-5.20 10^6/uL Hemoglobin 10.4 L 12.2-16.2 g/dL Hematocrit 32.2 L 36.0-46.0 % Mean Corpuscular Volume 94.1 80.0-100.0 fL Mean Corpuscular Hemoglobin 30.4 28.0-32.0 pg Mean Corpuscular Hemoglobin Concent 32.3 32.0-36.0 g/dL Red Cell Distribution Width 16.8 H 11.8-14.3 % Platelet Count 173 140-450 10^3/uL Mean Platelet Volume 9.2 6.9-10.8 fL Neutrophils (%) (Auto) 37.0-80.0 % Lymphocytes (%) (Auto) 10.0-50.0 % Monocytes (%) (Auto) 0.0-12.0 % Basophils (%) (Auto) 0.0-2.0 % Neutrophils # (Auto) 1.6-8.6 10 ^3/uL Lymphocytes # (Auto) 0.4-5.4 10 ^3/uL Monocytes # (Auto) 0-1.3 10 ^3/uL Differential Total Cells Counted 100.0 100 Neutrophils % (Manual) 79 37.0-80.0 Band Neutrophils % (Manual) 0 Lymphocytes % (Manual) 18 10.0-50.0 Monocytes % (Manual) 2 0-12 Eosinophils % (Manual) 0 0-7 Basophils % (Manual) 0 0.0-2.0 Metamyelocytes % (manual) 1 Myelocytes % (Manual) 0 Promyelocytes % (Manual) 0 Blast Cells % (Manual) 0 Nucleated Red Blood Cells 1.0 % Reactive Lymphocytes 0 Platelet Estimate Adequate Ovalocytes P Sodium Level 140 136-145 mmol/L Potassium Level 4.6 3.5-5.1 mmol/L Chloride Level 110 H 98-107 mmol/L Carbon Dioxide Level 19 L 20-31 mmol/L Anion Gap 11 5-15 Blood Urea Nitrogen 75 H 9-23 mg/dL Creatinine 3.11 H 0.550-1.02 mg/dL Glomerular Filtration Rate Calc 14 >90 mL/min BUN/Creatinine Ratio 24.1 H 10.0-20.0 Serum Glucose 208 H 74-106 mg/dL Calcium Level 10.2 8.7-10.4 mg/dL Troponin I High Sensitivity 846 *H </=34 ng/L B-Type Natriuretic Peptide 287.97 0-100 pg/mL Plasma/Serum Blood Alcohol < 3.0 <10 mg/dL Assessment Acute kidney injury superimposed Chronic Kidney Disease secondary hemodynamic mediated Encephalopathy Urinary tract infection Dementia NSTEMI Diabetes mellitus type 2 Hypertension Metabolic acidosis Leukopenia Recommendations Closely monitor fluid and electrolytes Avoid nephrotoxic medications Nino catheter Strict I&Os IVF half NS with 50 mEq sodium bicarb at 70 cc/hour IV antibiotic Check urine electrolytes and protein excretion Check uric acid level Check kidney ultrasound Cardiology consult We will continue to follow up Patient seen and examined by myself today in. I discussed my plan of care with the patient and the primary nurse at the bedside I would like to thank for the consult, will follow Plan discussed with: Patient PRABHJOT KAPADIA MD Mar 27, 2024 11:11
--- NOTE | 2024-03-27 11:13 | DVH ---
INDICATION: RENAL FAILURE TECHNIQUE: Multiple real-time sonographic images of the kidneys and bladder were obtained. COMPARISON: None FINDINGS: The right kidney measures 8 cm in length, which is normal in size. There is normal echogenicity of th e right kidney. No hydronephrosis. 2cm right renal cyst. The left kidney measures 9 cm in length, which is normal in size. There is normal echogenicity of the left kidney. No hydronephrosis. No large intraluminal masses are seen in the bladder. IMPRESSION: 1. Normal sonographic appearance of the kidneys. No hydronephrosis.
[2024-03-27 11:40] LABS: Magnesium 2.6 mg/dL (1.6-2.6)
[2024-03-27 11:42] LABS: Phosphorus 2.8 mg/dL (2.4-5.1)
[2024-03-27] MEDS: ACCU-CHEK COMFORT CURVE STRIP VI SCH (11:58)
[2024-03-27] MEDS: InsuLIN REG 1unit/0.01ml Soln (100units/ml) SC SCH (12:04)
[2024-03-27 12:12] LABS: Protein, Urine 205.8 mg/dL (1-14)
[2024-03-27 12:13] LABS: Creatinine, Urine 38.11 mg/dL (30.0-125.0); Urine Protein/Creatinine Ratio 5.4
[2024-03-27 12:14] LABS: Urine Amorphous Crystal FEW /hpf (None Seen); Urine Bacteria FEW /hpf (None Seen); Urine Blood 2+ /uL (Negative); Urine Budding Yeast OCCASIONAL /hpf (None Seen); Urine Clarity Clear (Clear); Urine Color Light-Yellow (Yellow); Urine Protein, UAD 2+ (Negative); Urine Specific Gravity 1.012 (1.001-1.035); Urine Squamous Epithelial Cell FEW /hpf (<5); Urine Urobilinogen Normal (Negative); Urine WBC 2 /hpf (0 - 5); Urine WBC Clumps PRESENT /hpf (None Seen); Urine pH 5.5 (5.0-9.0)
[2024-03-27] MEDS ORDERED: GLIP10TA9 PO (13:04)
[2024-03-27] MEDS ORDERED: AMLO1TAB21 PO (13:06)
[2024-03-27] MEDS ORDERED: TROS20TA3 PO (13:06)
[2024-03-27] MEDS ORDERED: EMPA1TAB3 PO (13:07)
[2024-03-27] MEDS ORDERED: LISI40TA16 PO (13:08)
[2024-03-27] MEDS ORDERED: ALLO300T2 PO (13:08)
--- NOTE | 2024-03-27 14:16 | DVHPN2 ---
Consult Progress Note Subjective Other Systems: Patient in sinus tachycardia on patient monitor. Objective vital signs Vital Sign Date Time Temp Pulse Resp B/P (MAP) Pulse Ox O2 Delivery O2 Flow Rate FiO2 03/27/24 13:03 97.4 105 18 111/52 (71) 96 97.4 03/27/24 08:06 Nasal Cannula* 1 24 Total Intake and Output 03/26/24 03/26/24 03/27/24 15:00 23:00 07:00 Intake Total 300 ml 650 ml Output Total 650 ml Balance 300 ml 0 ml medications Current Medications Medications Dose Ordered Sig/Michael Route Start Time Stop Time Status Last Admin Dose Admin Azithromycin 250 ml @ 125 mls/hr DAILY IV 03/27/24 10:00 03/27/24 09:13 125 MLS/HR Ceftriaxone Sodium 50 ml @ 100 mls/hr DAILY@09 IV 03/27/24 09:00 03/27/24 09:10 100 MLS/HR Heparin Sodium (Porcine) 5,000 units Q12HR SC 03/26/24 22:00 03/27/24 09:24 5,000 UNITS Sodium Chloride 10 ml Q8HR IV 03/26/24 22:00 03/27/24 06:45 10 ML Acetaminophen/ Hydrocodone Bitart 1 tab Q4HP PRN PO 03/26/24 17:00 Ondansetron HCl 4 mg Q4HP PRN IV 03/26/24 17:00 Docusate Sodium 100 mg BIDPRN PRN PO 03/26/24 17:00 Acetaminophen 650 mg Q6HP PRN PO 03/26/24 17:00 Nitroglycerin 0.4 mg Q5MINP PRN SL 03/26/24 17:00 Morphine Sulfate 2 mg Q30M PRN IV 03/26/24 17:00 Diagnostic Test (Pha) 1 strip Q6HR 03/27/24 12:00 03/27/24 11:58 1 STRIP Insulin Human Regular Q6HR SC 03/27/24 12:00 03/27/24 12:04 3 UNITS Dextrose 50 ml UD PRN IV 03/27/24 10:00 Famotidine 20 mg DAILY IV 03/27/24 10:00 Sodium Bicarbonate 50 ml/ Sodium Chloride 1,050 ml @ 70 mls/hr Q15H IV 03/27/24 11:15 Examination: GENERAL:Normal, LUNGS:Abnormal (Coarse throughout), CVS:Normal, NEURO:Normal laboratory and microbiology Laboratory Tests 03/27/24 05:00 Test 03/27/24 05:00 Range/Units Serum Glucose 176 H 74-106 mg/dL Problem List/Assessment/Plan Problem List/Assessment/Plan Sepsis with pneumonia Acute respiratory failure NSTEMI, type 2 secondary to above Anemia Hypertension RONNIE versus CKD Type 2 diabetes mellitus Arthritis Plan/Recommendation (Dr. Claire): Patient seen and examined at bedside with . Transthoracic echocardiogram reveals EF approximately 65% with no regional wall motion abnormalities. Elevated troponin level likely secondary to demand mismatch ischemia from underlying pneumonia. Continue on telemetry, notify cardiology team immediately for any ECG changes. There is no further inpatient cardiac workup indicated at this time. Thank you for allowing us to care for this patient. Please call with any questions or concerns. This medical document was created using an electronic medical record system with voice recognition software and computerized dictation system. Although this document has been carefully reviewed, there might still be some phonetic and typographical errors. Occasional wrong-word or ``sound-alike substitutions may have occurred due to the inherent limitations of voice recognition software. These areas are purely typographical due to imperfections of the software programs and do not reflect any compromise in the patient's medical care. Please read the chart carefully and recognize, using context, where these substitutions have occurred. Plan discussed with: Patient, Daughter, Son Date of Service: Mar 27, 2024 Billing Provider: RAJ CLAIRE MD Common Visit Codes: [id number] INP/OBS CARE(HIGH) MICHAELA VILLEGAS [employer] ANALYST Mar 27, 2024 14:16
--- NOTE | 2024-03-27 14:37 | DVHSR ---
APPROVED REPORT EXAM: Two-dimensional and M-mode echocardiogram with Doppler and color Doppler. Blood Pressure: 118/49 mmHg INDICATION Evaluate cardiac function RISK FACTORS Height: 5'4", Weight: 104 DIMENSIONS LVDd3.6 (3.8-5.7cm)LA (2D)3.6 (1.9-4.0cm)Aortic Root2.9 (2.0-3.7cm) LVDs2.5 (2.5-4.0cm)LA (MM) (1.9-4.0cm)Aortic Cusp Exc1.5 (1.5-2.0cm) EF (%) 60.0 (55-70%)Rt. Atrium3.1 (1.9-4.0cm)Asc. Aorta cm IVSd0.8 (0.7-1.1cm)RV (D) (1.8-2.4cm) PWd0.8 (0.7-1.1cm) Mitral Valve MitralMitral Stenosis E wave0.53m/sMV Mean GR.mmHg A wave1.05m/sMV Peak GR.mmHg E/A ratio0.52D MVAcm2 DECEL [id number] 1/2 Timems Aortic Valve Aortic ValveAortic Stenosis V10.97m/Perri Mean GR.3mmHg V21.26m/Perri Peak GR.6mmHg LVOT Diameter1.7 (1.8-2.4cm)Doppler AVA1.75cm2 Tricuspid Valve TR Velocity2.97m/s [id number] LEFT VENTRICLE Normal left ventricular size. Wall thickness is normal. Ejection fraction is normal and is estimate d at 65%. There is no regional wall motion abnormalities. There is impaired relaxation of the left ventricle. RIGHT VENTRICLE The right ventricle is of normal size. Right ventricular systolic function is normal. ATRIA Both atria are of normal size. MITRAL VALVE Normal structure and function. No significant regurgitation. PULMONIC VALVE Likely normal. TRICUSPID VALVE Normal structure and function. There is mild tricuspid regurgitation. PA systolic pressure is estim ated at 40 mm Hg. AORTIC VALVE Normal structure and function. GREAT VESSELS Aortic root is of normal size. PERICARDIAL EFFUSION There is no pericardial effusion. IVC is of normal size and collapses normally with inspiration. Other Information Technically limited study due to body habitus, patient lying flat. Conclusion Normal left ventricular size and systolic function. Normal right ventricular size and systolic function. Grade I diastolic dysfunction. No hemodynamically significant valvular disease. PA systolic pressure is estimated at 40 mm Hg.
[2024-03-27] MEDS: SODIUM BICARB 50mEq/50ml Vial 50 ML in SOD CHL 0.45% 1,000 ML IV SCH (15:13)
[2024-03-28] VITALS (8 sets, daily range): BP systolic 126–146; BP diastolic 60–91; PULSE 90–105; RESP 18; TEMP 97.5–98.6; O2SAT 94–98
[2024-03-28 05:54] LABS: Anion Gap 13 (5-15); Carbon Dioxide 20 mmol/L (20-31); Potassium 3.9 mmol/L (3.5-5.1); Sodium 143 mmol/L (136-145)
[2024-03-28 06:00] LABS: BUN/Creatinine Ratio 32.8 (10.0-20.0)
[2024-03-28 06:05] LABS: Hematocrit 31.8 % (36.0-46.0); Hemoglobin 10.3 g/dL (12.2-16.2); Mean Corpuscular Hemoglobin 29.9 pg (28.0-32.0); Mean Corpuscular Hgb Conc. 32.4 g/dL (32.0-36.0); Mean Corpuscular Volume 92.4 fL (80.0-100.0); Platelet Count (auto) 169 10^3/uL (140-450); Red Blood Cells 3.44 10^6/uL (4.0-5.20); Red Cell Distribution Width 16.5 % (11.8-14.3); White Blood Cell 7.9 10^3/uL (4.4-10.8)
[2024-03-28 06:13] LABS: INR 0.98 (0.9-1.15); Partial Thromboplastin Time 34.2 SEC (24.5-34.5); Prothrombin Time 10.4 sec (9.3-11.8)
[2024-03-28 06:32] LABS: Band Neutrophils % (manual) 0; Basophils % (manual) 0 (0.0-2.0); Blast Cells 0; Eosinophils % (manual) 0 (0-7); Metamyelocytes % 0; Monocytes % (manual) 0 (0-12); Myelocytes % 0; Promyelocytes % 0; Reactive Lymphocytes 0
[2024-03-28 06:49] LABS: Blood Urea Nitrogen 76 mg/dL (9-23); Calcium 10.7 mg/dL (8.7-10.4); Chloride 110 mmol/L (98-107); Glucose 107 mg/dL (74-106)
--- NOTE | 2024-03-28 06:53 | DVH ---
CHEST RADIOGRAPH Indication: PNEUMONIA Technique: Single frontal view of the chest was obtained Comparison: XY CHEST PORTABLE on DOS: 03/26/24 IMPRESSION: Heart appears stable in size. Bilateral patchy airspace opacities appear similar with slight more nod ular appearance in the left upper lobe. No sizable effusion or pneumothorax.
[2024-03-28 07:52] LABS: Anisocytosis Slight; Lymphocytes % (manual) 7 (10.0-50.0); Ovalocytes FEW
[2024-03-28 07:53] LABS: Platelet Estimate Adequate
--- NOTE | 2024-03-28 09:03 | DVHPN2 ---
Progress Note Date Seen: Mar 28, 2024 Medical Necessity Reason Pt with a Central, PICC or Fol: Yes The following are medically ne: Kay Catheter Reason for kay catheter: Strict I&O Subjective Patient reports: No new complaints Review of Systems: HEENT:Normal Objective vital signs Vital Sign Date Time Temp Pulse Resp B/P (MAP) Pulse Ox O2 Delivery O2 Flow Rate FiO2 03/28/24 07:40 Nasal Cannula* 1 24 03/28/24 05:00 98.6 96 18 126/60 (82) 98 98.6 Total Intake and Output 03/27/24 03/27/24 03/28/24 15:00 23:00 07:00 Intake Total 300 ml 525 ml 700 ml Output Total 500 ml 900 ml Balance 300 ml 25 ml -200 ml medications Current Medications Medications Dose Ordered Sig/Michael Route Start Time Stop Time Status Last Admin Dose Admin Azithromycin 250 ml @ 125 mls/hr DAILY IV 03/27/24 10:00 03/27/24 09:13 125 MLS/HR Ceftriaxone Sodium 50 ml @ 100 mls/hr DAILY@09 IV 03/27/24 09:00 03/27/24 09:10 100 MLS/HR Heparin Sodium (Porcine) 5,000 units Q12HR SC 03/26/24 22:00 03/27/24 23:04 5,000 UNITS Sodium Chloride 10 ml Q8HR IV 03/26/24 22:00 03/28/24 05:56 10 ML Acetaminophen/ Hydrocodone Bitart 1 tab Q4HP PRN PO 03/26/24 17:00 Ondansetron HCl 4 mg Q4HP PRN IV 03/26/24 17:00 Docusate Sodium 100 mg BIDPRN PRN PO 03/26/24 17:00 Acetaminophen 650 mg Q6HP PRN PO 03/26/24 17:00 Nitroglycerin 0.4 mg Q5MINP PRN SL 03/26/24 17:00 Morphine Sulfate 2 mg Q30M PRN IV 03/26/24 17:00 Diagnostic Test (Pha) 1 strip Q6HR 03/27/24 12:00 03/28/24 05:56 1 STRIP Insulin Human Regular Q6HR SC 03/27/24 12:00 03/28/24 06:00 2 UNITS Dextrose 50 ml UD PRN IV 03/27/24 10:00 Famotidine 20 mg DAILY IV 03/27/24 10:00 Sodium Bicarbonate 50 ml/ Sodium Chloride 1,050 ml @ 70 mls/hr Q15H IV 03/27/24 11:15 03/27/24 15:13 70 MLS/HR Metoprolol Succinate 25 mg DAILY PO 03/28/24 10:00 Examination: GENERAL:Normal laboratory and microbiology Laboratory Tests 03/28/24 04:45 Test 03/28/24 04:45 Range/Units Serum Glucose 107 H 74-106 mg/dL Problem List/Assessment/Plan Problem List/Assessment/Plan Acute kidney injury baseline renal function is unknown Encephalopathy Urinary tract infection Dementia NSTEMI Diabetes mellitus type 2 Hypertension Metabolic acidosis Leukopenia Trip is resolving. function is unknown therefore cannot determine how far will down trend. may continue IVF, titrate off if obtains adequate nutrition US kidney shows simple renal cyst no inpatient w/u needed overall improved from renal standpoint, management per primary team Plan discussed with: Patient JEFF KAUFFMAN MD Mar 28, 2024 09:03
[2024-03-28] MEDS: METOPROLOL SUCCINATE XL 50 MG TAB PO SCH (09:24)
--- NOTE | 2024-03-28 11:21 | DVHPN2 ---
Progress Note Date Seen: Mar 28, 2024 Medical Necessity Reason Pt with a Central, PICC or Fol: Yes The following are medically ne: Kay Catheter Reason for kay catheter: Strict I&O Subjective Patient reports: No new complaints Review of Systems: HEENT:Normal, CVS:Normal, RESPIRATORY:Normal, GI:Normal, :Normal, MSK:Normal, NEURO:Normal Objective vital signs Vital Sign Date Time Temp Pulse Resp B/P (MAP) Pulse Ox O2 Delivery O2 Flow Rate FiO2 03/28/24 09:39 97.5 105 18 146/73 (97) 95 97.5 03/28/24 07:40 Nasal Cannula* 1 24 Total Intake and Output 03/27/24 03/27/24 03/28/24 15:00 23:00 07:00 Intake Total 300 ml 525 ml 700 ml Output Total 500 ml 900 ml Balance 300 ml 25 ml -200 ml medications Current Medications Medications Dose Ordered Sig/Michael Route Start Time Stop Time Status Last Admin Dose Admin Azithromycin 250 ml @ 125 mls/hr DAILY IV 03/27/24 10:00 03/28/24 09:24 125 MLS/HR Ceftriaxone Sodium 50 ml @ 100 mls/hr DAILY@09 IV 03/27/24 09:00 03/28/24 09:23 100 MLS/HR Heparin Sodium (Porcine) 5,000 units Q12HR SC 03/26/24 22:00 03/28/24 09:23 5,000 UNITS Sodium Chloride 10 ml Q8HR IV 03/26/24 22:00 03/28/24 05:56 10 ML Acetaminophen/ Hydrocodone Bitart 1 tab Q4HP PRN PO 03/26/24 17:00 Ondansetron HCl 4 mg Q4HP PRN IV 03/26/24 17:00 Docusate Sodium 100 mg BIDPRN PRN PO 03/26/24 17:00 Acetaminophen 650 mg Q6HP PRN PO 03/26/24 17:00 Nitroglycerin 0.4 mg Q5MINP PRN SL 03/26/24 17:00 Morphine Sulfate 2 mg Q30M PRN IV 03/26/24 17:00 Diagnostic Test (Pha) 1 strip Q6HR 03/27/24 12:00 03/28/24 05:56 1 STRIP Insulin Human Regular Q6HR SC 03/27/24 12:00 03/28/24 06:00 2 UNITS Dextrose 50 ml UD PRN IV 03/27/24 10:00 Famotidine 20 mg DAILY IV 03/27/24 10:00 03/28/24 09:23 20 MG Sodium Bicarbonate 50 ml/ Sodium Chloride 1,050 ml @ 70 mls/hr Q15H IV 03/27/24 11:15 03/27/24 15:13 70 MLS/HR Metoprolol Succinate 25 mg DAILY PO 03/28/24 10:00 03/28/24 09:24 25 MG Examination: GENERAL:Normal, HEENT:Normal, NECK:Normal, LUNGS:Normal, LUNGS:Abnormal (on oxygen), CVS:Normal, ABDOMEN:Normal, MSK:Normal, SKIN:Normal, NEURO:Normal, :Normal laboratory and microbiology Laboratory Tests 03/28/24 04:45 Test 03/28/24 04:45 Range/Units Serum Glucose 107 H 74-106 mg/dL Problem List/Assessment/Plan Problem List/Assessment/Plan #1 acute resp failure: cont oxygen #2 sepsis with pneumonia: iv antibiotics, sputum culture #3 acute renal failure ? vasomotor nephropathy: usg, ivf #4 dm: ssi #5 htn #6 encephalopathy- toxic/metabolic #7 anemia/leukopenia #8 nstemi ?type 2 #9 uti: culture advance care planning- full code- time spent 19 mins Plan discussed with: Patient Date of Service: Mar 28, 2024 Billing Provider: SHANAE BRYAN MD Common Visit Codes: [id number] INP/OBS CARE(HIGH) SHANAE BRYAN MD Mar 28, 2024 11:21
[2024-03-29] VITALS (8 sets, daily range): BP systolic 115–162; BP diastolic 64–85; PULSE 97–111; RESP 15–20; TEMP 97.7–98.9; O2SAT 90–96
[2024-03-29 06:16] LABS: Sodium 142 mmol/L (136-145)
[2024-03-29 06:17] LABS: Anion Gap 14 (5-15); Carbon Dioxide 20 mmol/L (20-31)
[2024-03-29 06:18] LABS: Calcium 10.3 mg/dL (8.7-10.4)
[2024-03-29 06:22] LABS: BUN/Creatinine Ratio 33.5 (10.0-20.0)
[2024-03-29 06:28] LABS: Chloride 108 mmol/L (98-107); Glucose 140 mg/dL (74-106); Potassium 3.3 mmol/L (3.5-5.1)
[2024-03-29 06:29] LABS: Blood Urea Nitrogen 65 mg/dL (9-23)
--- NOTE | 2024-03-29 09:38 | DVHPN2 ---
Progress Note Date Seen: Mar 29, 2024 Medical Necessity Reason Pt with a Central, PICC or Fol: Yes The following are medically ne: Kay Catheter Reason for kay catheter: Strict I&O Subjective Patient reports: No new complaints Objective vital signs Vital Sign Date Time Temp Pulse Resp B/P (MAP) Pulse Ox O2 Delivery O2 Flow Rate FiO2 03/29/24 08:37 98.4 110 20 115/73 (87) 91 98.4 03/28/24 20:00 Nasal Cannula* 1 24 Total Intake and Output 03/28/24 03/28/24 03/29/24 15:00 23:00 07:00 Intake Total 300 ml 425 ml 500 ml Output Total 550 ml 1400 ml Balance 300 ml -125 ml -900 ml medications Current Medications Medications Dose Ordered Sig/Michael Route Start Time Stop Time Status Last Admin Dose Admin Azithromycin 250 ml @ 125 mls/hr DAILY IV 03/27/24 10:00 03/28/24 09:24 125 MLS/HR Ceftriaxone Sodium 50 ml @ 100 mls/hr DAILY@09 IV 03/27/24 09:00 03/29/24 09:01 100 MLS/HR Heparin Sodium (Porcine) 5,000 units Q12HR SC 03/26/24 22:00 03/28/24 23:39 5,000 UNITS Sodium Chloride 10 ml Q8HR IV 03/26/24 22:00 03/29/24 06:58 10 ML Acetaminophen/ Hydrocodone Bitart 1 tab Q4HP PRN PO 03/26/24 17:00 Ondansetron HCl 4 mg Q4HP PRN IV 03/26/24 17:00 Docusate Sodium 100 mg BIDPRN PRN PO 03/26/24 17:00 Acetaminophen 650 mg Q6HP PRN PO 03/26/24 17:00 Nitroglycerin 0.4 mg Q5MINP PRN SL 03/26/24 17:00 Morphine Sulfate 2 mg Q30M PRN IV 03/26/24 17:00 Diagnostic Test (Pha) 1 strip Q6HR 03/27/24 12:00 03/29/24 06:58 1 STRIP Insulin Human Regular Q6HR SC 03/27/24 12:00 03/29/24 07:00 2 UNITS Dextrose 50 ml UD PRN IV 03/27/24 10:00 Sodium Bicarbonate 50 ml/ Sodium Chloride 1,050 ml @ 70 mls/hr Q15H IV 03/27/24 11:15 03/28/24 16:20 70 MLS/HR Metoprolol Succinate 25 mg DAILY PO 03/28/24 10:00 03/28/24 09:24 25 MG Allopurinol 100 mg DAILY PO 03/29/24 10:00 Famotidine 10 mg DAILY PO 03/29/24 10:00 Examination: GENERAL:Abnormal, CVS:Normal, ABDOMEN:Normal laboratory and microbiology Laboratory Tests 03/29/24 04:46 03/28/24 04:45 Test 03/29/24 04:46 Range/Units Serum Glucose 140 H 74-106 mg/dL Microbiology Date/Time Source Procedure Growth Status 03/27/24 13:28 Blood Blood Culture - Preliminary NO GROWTH AFTER 24 HOURS OF INCUBATION. Resulted Problem List/Assessment/Plan Problem List/Assessment/Plan Acute kidney injury baseline renal function is unknown Encephalopathy Urinary tract infection Dementia NSTEMI Diabetes mellitus type 2 Hypertension Metabolic acidosis Leukopenia Trip is resolving. may continue IVF change to LR to reduce hypokalemia . replace K today elevated Ca with normal PTH and low Vit D level . Likely immobility / dehydration US kidney shows simple renal cyst no inpatient w/u needed overall improved from renal standpoint, management per primary team Plan discussed with: Patient JEFF KAUFFMAN MD Mar 29, 2024 09:38
[2024-03-29] MEDS ORDERED: FAMOTIDINE 20 MG TAB PO SCH (10:00)
[2024-03-29] MEDS: ALLOPURINOL 100 MG TAB PO SCH (10:53)
[2024-03-29] MEDS: POTASSIUM CHL 20 Meq TABLET PO ONE ×2 (10:53→12:25)
[2024-03-29] MEDS: FAMOTIDINE 20 MG TAB PO SCH (10:53)
--- NOTE | 2024-03-29 11:52 | DVHPN2 ---
Progress Note Date Seen: Mar 29, 2024 Medical Necessity Reason Pt with a Central, PICC or Fol: Yes The following are medically ne: Kay Catheter Reason for kay catheter: Strict I&O Subjective Patient reports: No new complaints Review of Systems: HEENT:Normal, CVS:Normal, RESPIRATORY:Normal, GI:Normal, :Normal, MSK:Normal, NEURO:Normal Objective vital signs Vital Sign Date Time Temp Pulse Resp B/P (MAP) Pulse Ox O2 Delivery O2 Flow Rate FiO2 03/29/24 10:52 110 115/73 03/29/24 08:37 98.4 20 91 98.4 03/29/24 08:00 Room Air* 0 21 Total Intake and Output 03/28/24 03/28/24 03/29/24 15:00 23:00 07:00 Intake Total 300 ml 425 ml 500 ml Output Total 550 ml 1400 ml Balance 300 ml -125 ml -900 ml medications Current Medications Medications Dose Ordered Sig/Michael Route Start Time Stop Time Status Last Admin Dose Admin Azithromycin 250 ml @ 125 mls/hr DAILY IV 03/27/24 10:00 03/29/24 10:54 125 MLS/HR Ceftriaxone Sodium 50 ml @ 100 mls/hr DAILY@09 IV 03/27/24 09:00 03/29/24 09:01 100 MLS/HR Heparin Sodium (Porcine) 5,000 units Q12HR SC 03/26/24 22:00 03/29/24 10:55 5,000 UNITS Sodium Chloride 10 ml Q8HR IV 03/26/24 22:00 03/29/24 06:58 10 ML Acetaminophen/ Hydrocodone Bitart 1 tab Q4HP PRN PO 03/26/24 17:00 Ondansetron HCl 4 mg Q4HP PRN IV 03/26/24 17:00 Docusate Sodium 100 mg BIDPRN PRN PO 03/26/24 17:00 Acetaminophen 650 mg Q6HP PRN PO 03/26/24 17:00 Nitroglycerin 0.4 mg Q5MINP PRN SL 03/26/24 17:00 Morphine Sulfate 2 mg Q30M PRN IV 03/26/24 17:00 Diagnostic Test (Pha) 1 strip Q6HR 03/27/24 12:00 03/29/24 06:58 1 STRIP Insulin Human Regular Q6HR SC 03/27/24 12:00 1/2/25 07:00 2 UNITS Dextrose 50 ml UD PRN IV 03/27/24 10:00 Metoprolol Succinate 25 mg DAILY PO 03/28/24 10:00 03/29/24 10:52 25 MG Allopurinol 100 mg DAILY PO 03/29/24 10:00 03/29/24 10:53 100 MG Famotidine 10 mg DAILY PO 03/29/24 10:00 03/29/24 10:53 10 MG Lactated Ringer's 1,000 ml @ 50 mls/hr Q20H IV 03/29/24 09:45 Examination: GENERAL:Normal, HEENT:Normal, NECK:Normal, LUNGS:Normal, CVS:Normal, ABDOMEN:Normal, MSK:Normal, SKIN:Normal, NEURO:Normal, :Normal laboratory and microbiology Laboratory Tests 03/29/24 04:46 03/28/24 04:45 Test 03/29/24 04:46 Range/Units Serum Glucose 140 H 74-106 mg/dL Microbiology Date/Time Source Procedure Growth Status 03/27/24 13:28 Blood Blood Culture - Preliminary NO GROWTH AFTER 24 HOURS OF INCUBATION. Resulted Problem List/Assessment/Plan Problem List/Assessment/Plan #1 acute resp failure: cont oxygen #2 sepsis with pneumonia: iv antibiotics, sputum culture, chest xray in am #3 acute renal failure ? vasomotor nephropathy: usg, ivf #4 dm: ssi #5 htn #6 encephalopathy- toxic/metabolic #7 anemia/leukopenia #8 nstemi ?type 2 #9 uti: culture advance care planning- full code- time spent 19 mins Plan discussed with: Patient My Orders My Orders Orders - SHANAE BRYAN MD Procedure Category Date Status Time Famotidine Tablet PHA 03/29/24 In Process (Pepcid Tablet) 10:00 Date of Service: Mar 29, 2024 Billing Provider: SHANAE BRYAN MD Common Visit Codes: [id number] INP/OBS CARE(HIGH) SHANAE BRYAN MD Mar 29, 2024 11:52
[2024-03-29] MEDS: LACTATED RINGER'S 1,000 ML IV SCH (12:29)
[2024-03-30] VITALS (8 sets, daily range): BP systolic 130–155; BP diastolic 44–79; PULSE 68–98; RESP 17–20; TEMP 98–100.3; O2SAT 94–100
--- NOTE | 2024-03-30 05:23 | DVH ---
CHEST RADIOGRAPH Indication: pneumonia Technique: Single frontal view of the chest was obtained Comparison: XY CHEST PORTABLE on DOS: 03/28/24 FINDINGS: Lines and Tubes: None Lungs: Patchy bilateral consolidation. Pleura: No effusion. No pneumothorax. Cardiomediastinal contours: Unremarkable Bones: No acute osseous abnormality. IMPRESSION: 1. Multifocal bilateral consolidation which may reflect pneumonia in the appropriate clinical setting .
[2024-03-30 08:35] LABS: Basophils # (auto) 0 10 ^3/uL (0-0.2); Basophils % (auto) 0.1 % (0.0-2.0); Eosinophils # (auto) 0 10 ^3/uL (0-0.8); Hematocrit 29.6 % (36.0-46.0); Hemoglobin 9.5 g/dL (12.2-16.2); Lymphocytes # (auto) 0.2 10 ^3/uL (0.4-5.4); Mean Corpuscular Hemoglobin 29.8 pg (28.0-32.0); Mean Corpuscular Hgb Conc. 32.1 g/dL (32.0-36.0); Mean Corpuscular Volume 92.9 fL (80.0-100.0); Monocytes # (auto) 0.2 10 ^3/uL (0-1.3); Monocytes % (auto) 2.2 % (0.0-12.0); Neutrophils # (auto) 7.8 10 ^3/uL (1.6-8.6); Neutrophils % (auto) 94.7 % (37.0-80.0); Nucleated Red Blood Cells % 0.2 %; Platelet Count (auto) 116 10^3/uL (140-450); Red Blood Cells 3.18 10^6/uL (4.0-5.20); Red Cell Distribution Width 15.3 % (11.8-14.3); White Blood Cell 8.3 10^3/uL (4.4-10.8)
[2024-03-30 08:37] LABS: Anion Gap 11 (5-15); Carbon Dioxide 22 mmol/L (20-31); Chloride 105 mmol/L (98-107); Potassium 3.5 mmol/L (3.5-5.1); Sodium 138 mmol/L (136-145)
[2024-03-30 08:43] LABS: BUN/Creatinine Ratio 29.5 (10.0-20.0)
[2024-03-30 08:45] LABS: Blood Urea Nitrogen 41 mg/dL (9-23); Glucose 149 mg/dL (74-106)
[2024-03-30] MEDS: AZITHROMYCIN 250 MG TAB PO SCH (08:57)
--- NOTE | 2024-03-30 11:06 | DVHPN2 ---
Subjective The patient did not share any complaints; does not have her hearing aids; as per the patient's son, the patient is still confused Reviewed: Care Plan, H&P, Labs, Medications, Previous Orders, Radiology, Other (Consultations) Changes from previous H/P or p: Changes Objective Vitals Vital Signs Date Time Temp Pulse Resp B/P (MAP) Pulse Ox O2 Delivery O2 Flow Rate FiO2 03/30/24 08:57 73 141/76 03/30/24 08:43 98.8 19 96 98.8 03/29/24 20:00 Room Air* 0 21 Intake/Output Intake and Output 03/30/24 07:00 Intake Total 740 ml Output Total 2050 ml Balance -1310 ml Intake Oral 740 ml Output Urine Total 2050 ml General Appearance: Cooperative, No acute distress, Other (Confused) HEENT: Other (Very hard hearing; lacking hearing aids) Lungs: Other (Decreased air entry bilaterally with scattered wheezing and crackles) Cardiovascular: Regular rate, Normal S1, Normal S2 Abdomen: Normal bowel sounds, Soft, No tenderness Genitourinary: Other (Nino's) Neuro: Normal speech, Cranial nerves 3-12 NL Medications Current Medications Medications Dose Ordered Sig/Michael Route Start Time Stop Time Status Last Admin Dose Admin Ceftriaxone Sodium 50 ml @ 100 mls/hr DAILY@09 IV 03/27/24 09:00 03/30/24 08:56 100 MLS/HR Heparin Sodium (Porcine) 5,000 units Q12HR SC 03/26/24 22:00 03/30/24 09:06 5,000 UNITS Sodium Chloride 10 ml Q8HR IV 03/26/24 22:00 03/30/24 05:40 10 ML Acetaminophen/ Hydrocodone Bitart 1 tab Q4HP PRN PO 03/26/24 17:00 Ondansetron HCl 4 mg Q4HP PRN IV 03/26/24 17:00 Docusate Sodium 100 mg BIDPRN PRN PO 03/26/24 17:00 Acetaminophen 650 mg Q6HP PRN PO 03/26/24 17:00 Nitroglycerin 0.4 mg Q5MINP PRN SL 03/26/24 17:00 Morphine Sulfate 2 mg Q30M PRN IV 03/26/24 17:00 Diagnostic Test (Pha) 1 strip Q6HR 03/27/24 12:00 03/30/24 05:40 1 STRIP Insulin Human Regular Q6HR SC 03/27/24 12:00 03/30/24 05:42 2 UNITS Dextrose 50 ml UD PRN IV 03/27/24 10:00 Metoprolol Succinate 25 mg DAILY PO 03/28/24 10:00 03/30/24 08:57 25 MG Allopurinol 100 mg DAILY PO 03/29/24 10:00 03/30/24 08:57 100 MG Famotidine 10 mg DAILY PO 03/29/24 10:00 03/30/24 08:58 10 MG Lactated Ringer's 1,000 ml @ 50 mls/hr Q20H IV 03/29/24 09:45 03/30/24 05:40 50 MLS/HR Azithromycin 500 mg DAILY PO 03/30/24 10:00 03/30/24 08:57 500 MG Laboratory Results Laboratory Tests 03/30/24 07:55 Chemistry Test 03/30/24 07:55 Calcium Level 9.0 mg/dL (8.7-10.4) Urinalysis Test 03/27/24 11:18 Urine Color Light-yellow (Yellow) Urine Clarity Clear (Clear) Urine pH 5.5 (5.0-9.0) Urine Specific [place] 1.012 (1.001-1.035) Urine Protein 2+ (Negative) H Urine Ketones Negative (Negative) Urine Blood 2+ /uL (Negative) H Urine Nitrite Negative (Negative) Urine Bilirubin Negative (Negative) Urine Urobilinogen Normal mg/dL (Negative) Urine Leukocyte Esterase Negative /uL (Negative) Urine RBC 9 /hpf (0 - 4) Urine WBC 2 /hpf (0 - 5) Urine WBC Clumps Present /hpf (None Seen) Urine Squamous Epithelial Cells Few /hpf (<5) Urine Amorphous Crystals Few /hpf (None Seen) Urine Bacteria Few /hpf (None Seen) H Urine Yeast (Budding) Occasional /hpf (None Urine Creatinine 38.11 mg/dL (30.0-125.0) Urine Protein/Creatinine Ratio 5.40 Urine Sodium 30 mmol/L (40-220) L Urine Glucose 4+ mg/dL (Normal) H Urine Total Protein 205.8 mg/dL (1-14) H Microbiology Microbiology Date/Time Source Procedure Growth Status 03/28/24 16:14 Urine - [place] Urine Culture - Preliminary Resulted 03/27/24 13:28 Blood Blood Culture - Preliminary NO GROWTH AFTER 48 HOURS OF INCUBATION. Resulted Labs and/or images reviewed: Labs reviewed by me, Image(s) reviewed by me Assessment/Plan Assessment/Plan Covering Dr. Hernandez: #Acute hypoxic respiratory failure due to pneumonia; continue oxygen therapy as needed; continue monitoring #Sepsis secondary to pneumonia; continue IV antibiotics; reviewed the available imaging studies including chest x-rays; reviewed the available cultures; continue monitoring #Acute metabolic/toxic encephalopathy in the setting of sepsis and RONNIE; reviewed the available imaging studies including head CT; still confused; continue monitoring #RONNIE; most likely vasomotor nephropathy; nephrology is following; avoid nephrotoxic agents; continue monitoring #DM type 2; continue insulin sliding scale with hypoglycemia protocol; continue monitoring #Hypertensive heart disease with a grade 1 diastolic dysfunction; continue antihypertensive medications as indicated; reviewed echocardiogram; continue monitoring #Pancytopenia; possibly due to sepsis; droplet precautions; continue monitor #NSTEMI; most likely demand ischemia; type 2 [place]; in the setting of sepsis; asymptomatic; continue monitoring #UTI; urine culture still growing pathogens; continue IV antibiotics; continue monitoring #Gout; no flare; continue allopurinol; continue monitoring #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 Late Entry. This medical document was created using an electronic medical record system with computerized dictation system. Although this document has been carefully reviewed, there might still be some phonetic and typographical errors. These areas are purely typographical due to imperfections of the software programs, and do not reflect any compromise in the patient's medical care. Plan discussed with: Patient, Son, Other (Nurse) Date of Service: Mar 30, 2024 Billing Provider: BARBY DINH MD Common Visit Codes: [id number] INP/OBS CARE(HIGH) Secondary Visit Codes: [id number] CARE PLAN 30 MINUTES (20 minutes) BARBY DINH MD Mar 30, 2024 11:06
--- NOTE | 2024-03-30 11:18 | DVHPN2 ---
Progress Note Date Seen: Mar 30, 2024 Medical Necessity Reason Pt with a Central, PICC or Fol: Yes The following are medically ne: Kay Catheter Reason for kay catheter: Strict I&O Subjective Patient reports: Feels better Objective vital signs Vital Sign Date Time Temp Pulse Resp B/P (MAP) Pulse Ox O2 Delivery O2 Flow Rate FiO2 03/30/24 08:57 73 141/76 03/30/24 08:43 98.8 19 96 98.8 03/29/24 20:00 Room Air* 0 21 Total Intake and Output 03/29/24 03/29/24 03/30/24 15:00 23:00 07:00 Intake Total 640 ml 100 ml Output Total 1250 ml 800 ml Balance -610 ml -700 ml medications Current Medications Medications Dose Ordered Sig/Michael Route Start Time Stop Time Status Last Admin Dose Admin Ceftriaxone Sodium 50 ml @ 100 mls/hr DAILY@09 IV 03/27/24 09:00 03/30/24 08:56 100 MLS/HR Heparin Sodium (Porcine) 5,000 units Q12HR SC 03/26/24 22:00 03/30/24 09:06 5,000 UNITS Sodium Chloride 10 ml Q8HR IV 03/26/24 22:00 03/30/24 05:40 10 ML Acetaminophen/ Hydrocodone Bitart 1 tab Q4HP PRN PO 03/26/24 17:00 Ondansetron HCl 4 mg Q4HP PRN IV 03/26/24 17:00 Docusate Sodium 100 mg BIDPRN PRN PO 03/26/24 17:00 Acetaminophen 650 mg Q6HP PRN PO 03/26/24 17:00 Nitroglycerin 0.4 mg Q5MINP PRN SL 03/26/24 17:00 Morphine Sulfate 2 mg Q30M PRN IV 03/26/24 17:00 Diagnostic Test (Pha) 1 strip Q6HR 03/27/24 12:00 03/30/24 05:40 1 STRIP Insulin Human Regular Q6HR SC 03/27/24 12:00 03/30/24 05:42 2 UNITS Dextrose 50 ml UD PRN IV 03/27/24 10:00 Metoprolol Succinate 25 mg DAILY PO 03/28/24 10:00 03/30/24 08:57 25 MG Allopurinol 100 mg DAILY PO 03/29/24 10:00 03/30/24 08:57 100 MG Famotidine 10 mg DAILY PO 03/29/24 10:00 03/30/24 08:58 10 MG Lactated Ringer's 1,000 ml @ 50 mls/hr Q20H IV 03/29/24 09:45 03/30/24 05:40 50 MLS/HR Azithromycin 500 mg DAILY PO 03/30/24 10:00 03/30/24 08:57 500 MG Examination: GENERAL:Normal, CVS:Normal laboratory and microbiology Laboratory Tests 03/30/24 07:55 Test 03/30/24 07:55 Range/Units Serum Glucose 149 H 74-106 mg/dL Microbiology Date/Time Source Procedure Growth Status 03/28/24 16:14 Urine - [place] Urine Culture - Preliminary Resulted 03/27/24 13:28 Blood Blood Culture - Preliminary NO GROWTH AFTER 48 HOURS OF INCUBATION. Resulted Problem List/Assessment/Plan Problem List/Assessment/Plan Acute kidney injury baseline renal function is unknown Encephalopathy Urinary tract infection Dementia NSTEMI Diabetes mellitus type 2 Hypertension Metabolic acidosis Leukopenia Trip is resolving. dc IVF, po as tolerated today may continue IVF change to LR to reduce hypokalemia . replace K today elevated Ca with normal PTH and low Vit D level . Likely immobility / dehydration Ca has now normalized US kidney shows simple renal cyst no inpatient w/u needed overall improved from renal standpoint, management per primary team trial of void prior to DC I will sign off the case Plan discussed with: Patient NAVARROSoyJEFF MD Mar 30, 2024 11:18
[2024-03-31] VITALS (8 sets, daily range): BP systolic 104–141; BP diastolic 52–67; PULSE 75–96; RESP 16–20; TEMP 97.5–99.1; O2SAT 93–98
--- NOTE | 2024-03-31 04:55 | DVHPN2 ---
Subjective The patient did not share any complaints Reviewed: Care Plan, H&P, Labs, Medications, Previous Orders, Radiology, Other (Consultations) Changes from previous H/P or p: No Changes Objective Vitals Vital Signs Date Time Temp Pulse Resp B/P (MAP) Pulse Ox O2 Delivery O2 Flow Rate FiO2 03/31/24 01:00 97.9 75 16 119/54 (75) 97 97.9 03/30/24 19:30 Nasal Cannula* 2 28 Intake/Output Intake and Output 03/31/24 07:00 Intake Total 530 ml Balance 530 ml Intake Oral 480 ml IV Total 50 ml # Voids 2 General Appearance: Cooperative, No acute distress, Other (Confused) HEENT: Other (Very hard hearing; lacking hearing aids) Lungs: Other (Decreased air entry bilaterally with scattered wheezing and crackles) Cardiovascular: Regular rate, Normal S1, Normal S2 Abdomen: Normal bowel sounds, Soft, No tenderness Genitourinary: Other (Nino's) Neuro: Normal speech, Cranial nerves 3-12 NL Medications Current Medications Medications Dose Ordered Sig/Michael Route Start Time Stop Time Status Last Admin Dose Admin Ceftriaxone Sodium 50 ml @ 100 mls/hr DAILY@09 IV 03/27/24 09:00 03/30/24 08:56 100 MLS/HR Heparin Sodium (Porcine) 5,000 units Q12HR SC 03/26/24 22:00 03/30/24 20:52 5,000 UNITS Sodium Chloride 10 ml Q8HR IV 03/26/24 22:00 03/30/24 20:52 10 ML Acetaminophen/ Hydrocodone Bitart 1 tab Q4HP PRN PO 03/26/24 17:00 Ondansetron HCl 4 mg Q4HP PRN IV 03/26/24 17:00 Docusate Sodium 100 mg BIDPRN PRN PO 03/26/24 17:00 Acetaminophen 650 mg Q6HP PRN PO 03/26/24 17:00 Nitroglycerin 0.4 mg Q5MINP PRN SL 03/26/24 17:00 Morphine Sulfate 2 mg Q30M PRN IV 03/26/24 17:00 Diagnostic Test (Pha) 1 strip Q6HR 03/27/24 12:00 03/30/24 23:24 1 STRIP Insulin Human Regular Q6HR SC 03/27/24 12:00 1/3/25 23:24 2 UNITS Dextrose 50 ml UD PRN IV 03/27/24 10:00 Metoprolol Succinate 25 mg DAILY PO 03/28/24 10:00 03/30/24 08:57 25 MG Allopurinol 100 mg DAILY PO 03/29/24 10:00 03/30/24 08:57 100 MG Famotidine 10 mg DAILY PO 03/29/24 10:00 03/30/24 08:58 10 MG Lactated Ringer's 1,000 ml @ 50 mls/hr Q20H IV 03/29/24 09:45 03/31/24 01:45 50 MLS/HR Azithromycin 500 mg DAILY PO 03/30/24 10:00 03/30/24 08:57 500 MG Laboratory Results Laboratory Tests 03/30/24 07:55 Chemistry Test 03/30/24 07:55 Calcium Level 9.0 mg/dL (8.7-10.4) Urinalysis Test 03/27/24 11:18 Urine Color Light-yellow (Yellow) Urine Clarity Clear (Clear) Urine pH 5.5 (5.0-9.0) Urine Specific [place] 1.012 (1.001-1.035) Urine Protein 2+ (Negative) H Urine Ketones Negative (Negative) Urine Blood 2+ /uL (Negative) H Urine Nitrite Negative (Negative) Urine Bilirubin Negative (Negative) Urine Urobilinogen Normal mg/dL (Negative) Urine Leukocyte Esterase Negative /uL (Negative) Urine RBC 9 /hpf (0 - 4) Urine WBC 2 /hpf (0 - 5) Urine WBC Clumps Present /hpf (None Seen) Urine Squamous Epithelial Cells Few /hpf (<5) Urine Amorphous Crystals Few /hpf (None Seen) Urine Bacteria Few /hpf (None Seen) H Urine Yeast (Budding) Occasional /hpf (None Urine Creatinine 38.11 mg/dL (30.0-125.0) Urine Protein/Creatinine Ratio 5.40 Urine Sodium 30 mmol/L (40-220) L Urine Glucose 4+ mg/dL (Normal) H Urine Total Protein 205.8 mg/dL (1-14) H Microbiology Microbiology Date/Time Source Procedure Growth Status 03/28/24 16:14 Urine - [place] Urine Culture - Preliminary Resulted 03/27/24 13:28 Blood Blood Culture - Preliminary NO GROWTH AFTER 72 HOURS OF INCUBATION. Resulted Labs and/or images reviewed: Labs reviewed by me, Image(s) reviewed by me Assessment/Plan Assessment/Plan Covering Dr. Hernandez: #Acute hypoxic respiratory failure due to pneumonia; continue oxygen therapy as needed; continue monitoring #Sepsis secondary to pneumonia; switched IV antibiotics as below; reviewed the available imaging studies including chest x-rays; reviewed the available cultures; continue monitoring #Acute metabolic/toxic encephalopathy in the setting of sepsis and RONNIE; reviewed the available imaging studies including head CT; still confused; continue monitoring #RONNIE; most likely vasomotor nephropathy; nephrology is following; avoid nephrotoxic agents; continue monitoring #DM type 2; continue insulin sliding scale with hypoglycemia protocol; continue monitoring #Hypertensive heart disease with a grade 1 diastolic dysfunction; continue antihypertensive medications as indicated; reviewed echocardiogram; continue monitoring #Pancytopenia; possibly due to sepsis; droplet precautions; continue monitor #NSTEMI; most likely demand ischemia; type 2 [place]; in the setting of sepsis; asymptomatic; continue monitoring #Enterococcus faecalis UTI; urine culture reviewed; switched IV antibiotics to levofloxacin after checking QTc; continue monitoring #Gout; no flare; continue allopurinol; continue monitoring #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 This medical document was created using an electronic medical record system with computerized dictation system. Although this document has been carefully reviewed, there might still be some phonetic and typographical errors. These areas are purely typographical due to imperfections of the software programs, and do not reflect any compromise in the patient's medical care. Plan discussed with: Patient (As much as she could understand), Other (Nurse) My Orders Orders - BARBY DINH MD Procedure Category Date Status Time * Shot Dropper CONS 03/30/24 Transmitted Consult Complete Blood Count LAB 03/31/24 Logged 04:00 * Shot Dropper CONS 03/30/24 Transmitted Consult Magnesium LAB 03/31/24 Logged 04:00 Comprehensive LAB 03/31/24 Logged Metabolic Panel 04:00 Date of Service: Mar 31, 2024 Billing Provider: BARBY DINH MD Common Visit Codes: [id number] INP/OBS CARE(HIGH) BARBY DINH MD Mar 31, 2024 04:55
[2024-03-31 06:15] LABS: Basophils # (auto) 0 10 ^3/uL (0-0.2); Basophils % (auto) 0.1 % (0.0-2.0); Eosinophils # (auto) 0 10 ^3/uL (0-0.8); Eosinophils % (auto) 0.2 % (0.0-7.0); Hematocrit 29.1 % (36.0-46.0); Hemoglobin 9.8 g/dL (12.2-16.2); Lymphocytes # (auto) 0.3 10 ^3/uL (0.4-5.4); Lymphocytes % (auto) 4.5 % (10.0-50.0); Mean Corpuscular Hemoglobin 30.8 pg (28.0-32.0); Mean Corpuscular Hgb Conc. 33.7 g/dL (32.0-36.0); Mean Corpuscular Volume 91.4 fL (80.0-100.0); Monocytes # (auto) 0.2 10 ^3/uL (0-1.3); Monocytes % (auto) 3.1 % (0.0-12.0); Neutrophils # (auto) 7.2 10 ^3/uL (1.6-8.6); Neutrophils % (auto) 92.1 % (37.0-80.0); Nucleated Red Blood Cells % 0.1 %; Platelet Count (auto) 117 10^3/uL (140-450); Red Blood Cells 3.18 10^6/uL (4.0-5.20); Red Cell Distribution Width 15.6 % (11.8-14.3); White Blood Cell 7.8 10^3/uL (4.4-10.8)
[2024-03-31 06:31] LABS: Alanine Aminotransferase 39 U/L (7-40); Alkaline Phosphatase 74 U/L (46-116); Anion Gap 10 (5-15); BUN/Creatinine Ratio 26.2 (10.0-20.0); Blood Urea Nitrogen 39 mg/dL (9-23); Calcium 9.1 mg/dL (8.7-10.4); Carbon Dioxide 23 mmol/L (20-31); Chloride 103 mmol/L (98-107); Glucose 148 mg/dL (74-106); Magnesium 1.5 mg/dL (1.6-2.6); Potassium 3.1 mmol/L (3.5-5.1); Sodium 136 mmol/L (136-145)
[2024-03-31 06:32] LABS: Aspartate Aminotransferase 33 U/L (13-40); Bilirubin, Total 0.9 mg/dL (0.2-1.0); Total Protein 5.9 g/dL (5.7-8.2)
[2024-03-31 06:33] LABS: Albumin 3.1 g/dL (3.2-4.8)
--- NOTE | 2024-03-31 16:13 | MEDREC ---
[facility] ASP Intervention Section I [facility] ASP Intervention: Review courses of therapy (THE FINAL URINE CULTURE SHOWED ENTEROCOCCUS FAECALIS. PLEASE CONSIDER SWITCHING ANTIBIOTICS BASED ON CULTURE RESULT) EB AMATO Mar 31, 2024 16:13
[2024-03-31] MEDS: THROAT LOZENGES(CEPASTAT) MT PRN (17:18)
[2024-03-31] MEDS: levoFLOXacin 250MG 50 ML IV SCH (22:00)
[2024-04-01] VITALS (7 sets, daily range): BP systolic 116–154; BP diastolic 53–72; PULSE 73–103; RESP 16–20; TEMP 97.3–98.6; O2SAT 91–100
--- NOTE | 2024-04-01 06:44 | DVHPN2 ---
Subjective The patient did not share any complaints; wondering when she will be discharged; re-evaluated by PT, still in need for SNF placement Reviewed: Care Plan, H&P, Labs, Medications, Previous Orders, Radiology, Other (Consultations) Changes from previous H/P or p: Changes Objective Vitals Vital Signs Date Time Temp Pulse Resp B/P (MAP) Pulse Ox O2 Delivery O2 Flow Rate FiO2 04/01/24 05:00 98.1 83 18 154/62 (92) 98 98.1 03/31/24 19:30 Nasal Cannula* 2 28 Intake/Output Intake and Output 04/01/24 07:00 Intake Total 650 ml Output Total 303 ml Balance 347 ml Intake Oral 600 ml IV Total 50 ml Output Urine Total 303 ml # Bowel Movements 1 General Appearance: Cooperative, No acute distress, Other (Confused) HEENT: Other (Very hard hearing; lacking hearing aids) Lungs: Other (Decreased air entry bilaterally with scattered wheezing and crackles) Cardiovascular: Regular rate, Normal S1, Normal S2 Abdomen: Normal bowel sounds, Soft, No tenderness Genitourinary: Other (Nino's) Neuro: Normal speech, Cranial nerves 3-12 NL Medications Current Medications Medications Dose Ordered Sig/Michael Route Start Time Stop Time Status Last Admin Dose Admin Heparin Sodium (Porcine) 5,000 units Q12HR SC 03/26/24 22:00 03/31/24 22:32 5,000 UNITS Sodium Chloride 10 ml Q8HR IV 03/26/24 22:00 04/01/24 05:35 10 ML Acetaminophen/ Hydrocodone Bitart 1 tab Q4HP PRN PO 03/26/24 17:00 Ondansetron HCl 4 mg Q4HP PRN IV 03/26/24 17:00 Docusate Sodium 100 mg BIDPRN PRN PO 03/26/24 17:00 Acetaminophen 650 mg Q6HP PRN PO 03/26/24 17:00 Nitroglycerin 0.4 mg Q5MINP PRN SL 03/26/24 17:00 Morphine Sulfate 2 mg Q30M PRN IV 03/26/24 17:00 Diagnostic Test (Pha) 1 strip Q6HR 03/27/24 12:00 04/01/24 05:35 1 STRIP Insulin Human Regular Q6HR SC 03/27/24 12:00 03/31/24 23:57 3 UNITS Dextrose 50 ml UD PRN IV 03/27/24 10:00 Metoprolol Succinate 25 mg DAILY PO 03/28/24 10:00 03/31/24 09:40 25 MG Allopurinol 100 mg DAILY PO 03/29/24 10:00 03/31/24 09:47 100 MG Famotidine 10 mg DAILY PO 03/29/24 10:00 03/31/24 09:47 10 MG Lactated Ringer's 1,000 ml @ 50 mls/hr Q20H IV 03/29/24 09:45 03/31/24 22:20 50 MLS/HR Throat Lozenges 1 mahendra Q6HPRN PRN MT 03/31/24 16:30 03/31/24 17:18 1 MAHENDRA Levofloxacin 50 ml @ 50 mls/hr DAILY@2200 IV 03/31/24 22:00 Laboratory Results Laboratory Tests 03/31/24 04:54 03/31/24 21:02 Urinalysis Test 03/27/24 11:18 Urine Color Light-yellow (Yellow) Urine Clarity Clear (Clear) Urine pH 5.5 (5.0-9.0) Urine Specific [place] 1.012 (1.001-1.035) Urine Protein 2+ (Negative) H Urine Ketones Negative (Negative) Urine Blood 2+ /uL (Negative) H Urine Nitrite Negative (Negative) Urine Bilirubin Negative (Negative) Urine Urobilinogen Normal mg/dL (Negative) Urine Leukocyte Esterase Negative /uL (Negative) Urine RBC 9 /hpf (0 - 4) Urine WBC 2 /hpf (0 - 5) Urine WBC Clumps Present /hpf (None Seen) Urine Squamous Epithelial Cells Few /hpf (<5) Urine Amorphous Crystals Few /hpf (None Seen) Urine Bacteria Few /hpf (None Seen) H Urine Yeast (Budding) Occasional /hpf (None Urine Creatinine 38.11 mg/dL (30.0-125.0) Urine Protein/Creatinine Ratio 5.40 Urine Sodium 30 mmol/L (40-220) L Urine Glucose 4+ mg/dL (Normal) H Urine Total Protein 205.8 mg/dL (1-14) H Microbiology Microbiology Date/Time Source Procedure Growth Status 03/28/24 16:14 Urine - [place] Urine Culture - Final Enterococcus faecalis Complete 03/27/24 13:28 Blood Blood Culture - Preliminary NO GROWTH AFTER 72 HOURS OF INCUBATION. Resulted Labs and/or images reviewed: Labs reviewed by me, Image(s) reviewed by me Assessment/Plan Assessment/Plan Covering Dr. Hernandez: #Acute hypoxic respiratory failure due to pneumonia; continue oxygen therapy as needed; continue monitoring #Sepsis secondary to pneumonia; switched IV antibiotics as below; reviewed the available imaging studies including chest x-rays; reviewed the available cultures; continue monitoring #Acute metabolic/toxic encephalopathy in the setting of sepsis and RONNIE; reviewed the available imaging studies including head CT; still confused; continue monitoring #RONNIE; most likely vasomotor nephropathy; nephrology is following; avoid nephrotoxic agents; continue monitoring #DM type 2; continue insulin sliding scale with hypoglycemia protocol; continue monitoring #Hypertensive heart disease with a grade 1 diastolic dysfunction; continue antihypertensive medications as indicated; reviewed echocardiogram; continue monitoring #Pancytopenia; possibly due to sepsis; droplet precautions; continue monitor #NSTEMI; most likely demand ischemia; type 2 [place]; in the setting of sepsis; asymptomatic; continue monitoring #Enterococcus faecalis UTI; urine culture reviewed; continue IV levofloxacin; continue monitoring #Gout; no flare; continue allopurinol; continue monitoring #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 Accessibility Lift Technician consulted to transfer the patient to [facility]; discussed the case with [facility], to discharge to SNF when bed is available; SNF will be arranged by [facility] Late Entry. This medical document was created using an electronic medical record system with computerized dictation system. Although this document has been carefully reviewed, there might still be some phonetic and typographical errors. These areas are purely typographical due to imperfections of the software programs, and do not reflect any compromise in the patient's medical care. Plan discussed with: Patient, Other My Orders Orders - BRABY DINH MD Procedure Category Date Status Time Throat Lozenges PHA 03/31/24 In Process (Cepastat Lozenges) 16:30 Levofloxacin 250mg PHA 03/31/24 In Process (Levaquin 250mg) 22:00 Date of Service: Apr 01, 2024 Billing Provider: BARBY DINH MD Common Visit Codes: [id number] INP/OBS CARE(HIGH) BARBY DINH MD Apr 01, 2024 06:44
[2024-04-01 10:38] LABS: Basophils # (auto) 0 10 ^3/uL (0-0.2); Basophils % (auto) 0.1 % (0.0-2.0); Eosinophils # (auto) 0 10 ^3/uL (0-0.8); Eosinophils % (auto) 0.2 % (0.0-7.0); Hematocrit 28.1 % (36.0-46.0); Hemoglobin 9.1 g/dL (12.2-16.2); Lymphocytes # (auto) 0.3 10 ^3/uL (0.4-5.4); Lymphocytes % (auto) 3.2 % (10.0-50.0); Mean Corpuscular Hemoglobin 29.7 pg (28.0-32.0); Mean Corpuscular Hgb Conc. 32.3 g/dL (32.0-36.0); Monocytes # (auto) 0.3 10 ^3/uL (0-1.3); Monocytes % (auto) 3.4 % (0.0-12.0); Neutrophils # (auto) 7.4 10 ^3/uL (1.6-8.6); Neutrophils % (auto) 93.1 % (37.0-80.0); Nucleated Red Blood Cells % 0.2 %; Platelet Count (auto) 152 10^3/uL (140-450); Red Blood Cells 3.05 10^6/uL (4.0-5.20); Red Cell Distribution Width 15.6 % (11.8-14.3); White Blood Cell 7.9 10^3/uL (4.4-10.8)
[2024-04-01 11:05] LABS: Anion Gap 8 (5-15); Carbon Dioxide 27 mmol/L (20-31); Chloride 101 mmol/L (98-107); Sodium 136 mmol/L (136-145)
[2024-04-01 11:11] LABS: BUN/Creatinine Ratio 21.5 (10.0-20.0); Blood Urea Nitrogen 29 mg/dL (9-23); Glucose 214 mg/dL (74-106); Potassium 3.1 mmol/L (3.5-5.1)
[2024-04-02] VITALS (8 sets, daily range): BP systolic 128–144; BP diastolic 54–65; PULSE 74–92; RESP 18–20; TEMP 37.4; O2SAT 92–100
[2024-04-02 07:46] LABS: Chloride 100 mmol/L (98-107)
[2024-04-02 07:47] LABS: Anion Gap 9 (5-15); Calcium 8.8 mg/dL (8.7-10.4); Carbon Dioxide 27 mmol/L (20-31)
[2024-04-02 07:51] LABS: Potassium 3.2 mmol/L (3.5-5.1); Sodium 136 mmol/L (136-145)
[2024-04-02 07:53] LABS: BUN/Creatinine Ratio 18.1 (10.0-20.0)
[2024-04-02 07:59] LABS: Blood Urea Nitrogen 25 mg/dL (9-23); Glucose 304 mg/dL (74-106); Magnesium 1.3 mg/dL (1.6-2.6)
[2024-04-02 08:22] LABS: Basophils # (auto) 0 10 ^3/uL (0-0.2); Basophils % (auto) 0.7 % (0.0-2.0); Eosinophils # (auto) 0 10 ^3/uL (0-0.8); Eosinophils % (auto) 0.4 % (0.0-7.0); Hematocrit 26.6 % (36.0-46.0); Hemoglobin 8.8 g/dL (12.2-16.2); Lymphocytes # (auto) 0.3 10 ^3/uL (0.4-5.4); Mean Corpuscular Hemoglobin 30.4 pg (28.0-32.0); Mean Corpuscular Volume 92.3 fL (80.0-100.0); Monocytes # (auto) 0.3 10 ^3/uL (0-1.3); Monocytes % (auto) 3.9 % (0.0-12.0); Neutrophils # (auto) 6.6 10 ^3/uL (1.6-8.6); Nucleated Red Blood Cells % 0.1 %; Platelet Count (auto) 170 10^3/uL (140-450); Red Blood Cells 2.88 10^6/uL (4.0-5.20); Red Cell Distribution Width 15.6 % (11.8-14.3); White Blood Cell 7.3 10^3/uL (4.4-10.8)
--- NOTE | 2024-04-02 11:49 | DVHDS2 ---
Discharge Summary Date of Admission Mar 26, 2024 at 16:54 Date of Discharge: Apr 02, 2024 Labs/Diagnostic Data: Laboratory Results Test 04/02/24 07:14 03/31/24 04:54 03/29/24 12:16 03/28/24 04:45 White Blood Count 7.3 10^3/uL (4.4-10.8) Red Blood Count 2.88 10^6/uL (4.0-5.20) Hemoglobin 8.8 g/dL (12.2-16.2) Hematocrit 26.6 % (36.0-46.0) Mean Corpuscular Volume 92.3 fL (80.0-100.0) Mean Corpuscular Hemoglobin 30.4 pg (28.0-32.0) Mean Corpuscular Hemoglobin Concent 33.0 g/dL (32.0-36.0) Red Cell Distribution Width 15.6 % (11.8-14.3) Platelet Count 170 10^3/uL (140-450) Mean Platelet Volume 10.4 fL (6.9-10.8) Neutrophils (%) (Auto) 91.0 % (37.0-80.0) Lymphocytes (%) (Auto) 4.0 % (10.0-50.0) Monocytes (%) (Auto) 3.9 % (0.0-12.0) Eosinophils (%) (Auto) 0.4 % (0.0-7.0) Basophils (%) (Auto) 0.7 % (0.0-2.0) Neutrophils # (Auto) 6.6 10 ^3/uL (1.6-8.6) Lymphocytes # (Auto) 0.3 10 ^3/uL (0.4-5.4) Monocytes # (Auto) 0.3 10 ^3/uL (0-1.3) Eosinophils # (Auto) 0 10 ^3/uL (0-0.8) Basophils # (Auto) 0 10 ^3/uL (0-0.2) Nucleated Red Blood Cells 0.1 % Sodium Level 136 mmol/L (136-145) Potassium Level 3.2 mmol/L (3.5-5.1) Chloride Level 100 mmol/L (98-107) Carbon Dioxide Level 27 mmol/L (20-31) Anion Gap 9 (5-15) Blood Urea Nitrogen 25 mg/dL (9-23) Creatinine 1.38 mg/dL (0.550-1.02) Glomerular Filtration Rate Calc 38 mL/min (>90) BUN/Creatinine Ratio 18.1 (10.0-20.0) Serum Glucose 304 mg/dL (74-106) Calcium Level 8.8 mg/dL (8.7-10.4) Magnesium Level 1.3 mg/dL (1.6-2.6) Total Bilirubin 0.9 mg/dL (0.2-1.0) Aspartate Amino Transferase (AST) 33 U/L (13-40) Alanine Aminotransferase (ALT) 39 U/L (7-40) Alkaline Phosphatase 74 U/L (46-116) Total Protein 5.9 g/dL (5.7-8.2) Albumin 3.1 g/dL (3.2-4.8) POC Glucose 169 mg/dl (70-106) Differential Total Cells Counted 100.0 (100) Neutrophils % (Manual) 93 (37.0-80.0) Band Neutrophils % (Manual) 0 Lymphocytes % (Manual) 7 (10.0-50.0) Monocytes % (Manual) 0 (0-12) Eosinophils % (Manual) 0 (0-7) Basophils % (Manual) 0 (0.0-2.0) Metamyelocytes % (manual) 0 Myelocytes % (Manual) 0 Promyelocytes % (Manual) 0 Blast Cells % (Manual) 0 Reactive Lymphocytes 0 Platelet Estimate Adequate Anisocytosis (manual) Slight Ovalocytes Few Prothrombin Time 10.4 sec (9.3-11.8) Prothrombin Time INR 0.98 (0.9-1.15) Activated Partial Thromboplast Time 34.2 SEC (24.5-34.5) Hemoglobin A1c 6.8 % A1C (<5.7) Thyroid Stimulating Hormone (TSH) 0.09 uIU/mL (0.55-4.78) Test 03/27/24 11:18 03/27/24 05:00 03/26/24 22:49 03/26/24 19:53 Urine Color Light-yellow (Yellow) Urine Clarity Clear (Clear) Urine pH 5.5 (5.0-9.0) Urine Specific [place] 1.012 (1.001-1.035) Urine Protein 2+ (Negative) Urine Ketones Negative (Negative) Urine Blood 2+ /uL (Negative) Urine Nitrite Negative (Negative) Urine Bilirubin Negative (Negative) Urine Urobilinogen Normal mg/dL (Negative) Urine Leukocyte Esterase Negative /uL (Negative) Urine RBC 9 /hpf (0 - 4) Urine WBC 2 /hpf (0 - 5) Urine WBC Clumps Present /hpf (None Seen) Urine Squamous Epithelial Cells Few /hpf (<5) Urine Amorphous Crystals Few /hpf (None Seen) Urine Bacteria Few /hpf (None Seen) Urine Yeast (Budding) Occasional /hpf (None Urine Creatinine 38.11 mg/dL (30.0-125.0) Urine Protein/Creatinine Ratio 5.40 Urine Sodium 30 mmol/L (40-220) Urine Glucose 4+ mg/dL (Normal) Urine Total Protein 205.8 mg/dL (1-14) Uric Acid 6.0 mg/dL (3.1-7.8) Phosphorus Level 2.8 mg/dL (2.4-5.1) Vitamin D 25-Hydroxy 28.7 ng/mL (30.0-100) Parathyroid Hormone (Intact) 49.2 pg/mL (18.4-80.1) Troponin I High Sensitivity 581 ng/L (</=34) Lactic Acid Level 1.8 mmol/L (0.4-2.0) Test 03/26/24 19:20 03/26/24 10:59 Influenza Type A Antigen Negative (Negative) Influenza Type B Antigen Negative (Negative) SARS-CoV-2 Antigen (Rapid) Negative (NEGATIVE) B-Type Natriuretic Peptide 287.97 pg/mL (0-100) Plasma/Serum Blood Alcohol < 3.0 mg/dL (<10) Other Laboratory Tests 04/02/24 07:14 Final Diagnosis/Problems List Acute hypoxic respiratory failure due to pneumonia Discharge Disposition: [facility] Facility Discharge Instruct/Medications Diet: Cardiac 2g Na,low cholest Activity: No Restrictions, As Tolerated Follow Up/Referral: With PCP after SNF discharge Medications: As per transfer paperwork Discharge Statement: "Patient was advised to return to the ER or call 911 if any headaches, dizziness, shortness of breath, chest pain, abdominal pain, bleeding, fevers, or worsening of medical condition. Patient was counseled about treatment plan, medications, possible side effects, patientverbalized understanding. All questions were answered to the best of my ability. This discharge took greater then 30 minutes in planning, reviewing documentation, counseling the patient, and discussing with other team members." ASSESSMENT ASSESSMENT Assessment Acute hypoxic respiratory failure due to pneumonia BARBY DINH MD Apr 02, 2024 11:49
--- NOTE | 2024-04-02 15:29 | DVHPN2 ---
Subjective The patient did not share any complaints; the patient and her son refused discharge to SNF in [place]; new consult placed for home health; [facility] informed Reviewed: Care Plan, H&P, Labs, Medications, Previous Orders, Radiology, Other (Consultations) Changes from previous H/P or p: Changes Objective Vitals Vital Signs Date Time Temp Pulse Resp B/P (MAP) Pulse Ox O2 Delivery O2 Flow Rate FiO2 04/02/24 13:00 98.0 83 18 144/65 (91) 99 98.0 04/02/24 08:15 Nasal Cannula* 2 28 Intake/Output Intake and Output 04/02/24 07:00 Intake Total 2320 ml Output Total 703 ml Balance 1617 ml Intake Oral 1320 ml IV Total 1000 ml Output Urine Total 703 ml # Bowel Movements 2 General Appearance: Cooperative, No acute distress, Other (Confused) HEENT: Other (Very hard hearing; lacking hearing aids) Lungs: Other (Decreased air entry bilaterally with scattered wheezing and crackles) Cardiovascular: Regular rate, Normal S1, Normal S2 Abdomen: Normal bowel sounds, Soft, No tenderness Genitourinary: Other (Nino's) Neuro: Normal speech, Cranial nerves 3-12 NL Medications Current Medications Medications Dose Ordered Sig/Michael Route Start Time Stop Time Status Last Admin Dose Admin Heparin Sodium (Porcine) 5,000 units Q12HR SC 03/26/24 22:00 04/02/24 10:44 5,000 UNITS Sodium Chloride 10 ml Q8HR IV 03/26/24 22:00 04/02/24 06:15 10 ML Acetaminophen/ Hydrocodone Bitart 1 tab Q4HP PRN PO 03/26/24 17:00 Ondansetron HCl 4 mg Q4HP PRN IV 03/26/24 17:00 Docusate Sodium 100 mg BIDPRN PRN PO 03/26/24 17:00 Acetaminophen 650 mg Q6HP PRN PO 03/26/24 17:00 Nitroglycerin 0.4 mg Q5MINP PRN SL 03/26/24 17:00 Morphine Sulfate 2 mg Q30M PRN IV 03/26/24 17:00 Diagnostic Test (Pha) 1 strip Q6HR 03/27/24 12:00 04/02/24 12:00 1 STRIP Insulin Human Regular Q6HR SC 03/27/24 12:00 04/02/24 12:00 6 UNITS Dextrose 50 ml UD PRN IV 03/27/24 10:00 Metoprolol Succinate 25 mg DAILY PO 03/28/24 10:00 04/02/24 10:36 25 MG Allopurinol 100 mg DAILY PO 03/29/24 10:00 04/02/24 10:36 100 MG Famotidine 10 mg DAILY PO 03/29/24 10:00 04/02/24 10:35 10 MG Lactated Ringer's 1,000 ml @ 50 mls/hr Q20H IV 03/29/24 09:45 04/01/24 14:50 50 MLS/HR Throat Lozenges 1 mahendra Q6HPRN PRN MT 03/31/24 16:30 04/01/24 14:49 1 MAHENDRA Levofloxacin 50 ml @ 50 mls/hr DAILY@2200 IV 03/31/24 22:00 Laboratory Results Laboratory Tests 04/02/24 07:14 Chemistry Test 04/02/24 07:14 Calcium Level 8.8 mg/dL (8.7-10.4) Magnesium Level 1.3 mg/dL (1.6-2.6) L Urinalysis Test 03/27/24 11:18 Urine Color Light-yellow (Yellow) Urine Clarity Clear (Clear) Urine pH 5.5 (5.0-9.0) Urine Specific [place] 1.012 (1.001-1.035) Urine Protein 2+ (Negative) H Urine Ketones Negative (Negative) Urine Blood 2+ /uL (Negative) H Urine Nitrite Negative (Negative) Urine Bilirubin Negative (Negative) Urine Urobilinogen Normal mg/dL (Negative) Urine Leukocyte Esterase Negative /uL (Negative) Urine RBC 9 /hpf (0 - 4) Urine WBC 2 /hpf (0 - 5) Urine WBC Clumps Present /hpf (None Seen) Urine Squamous Epithelial Cells Few /hpf (<5) Urine Amorphous Crystals Few /hpf (None Seen) Urine Bacteria Few /hpf (None Seen) H Urine Yeast (Budding) Occasional /hpf (None Urine Creatinine 38.11 mg/dL (30.0-125.0) Urine Protein/Creatinine Ratio 5.40 Urine Sodium 30 mmol/L (40-220) L Urine Glucose 4+ mg/dL (Normal) H Urine Total Protein 205.8 mg/dL (1-14) H Microbiology Microbiology Date/Time Source Procedure Growth Status 03/28/24 16:14 Urine - [place] Urine Culture - Final Enterococcus faecalis Complete 03/27/24 13:28 Blood Blood Culture - Final NO GROWTH AFTER 5 DAYS OF INCUBATION. Complete Labs and/or images reviewed: Labs reviewed by me, Image(s) reviewed by me Assessment/Plan Assessment/Plan Covering Dr. Hernandez: #Acute hypoxic respiratory failure due to pneumonia; continue oxygen therapy as needed; continue monitoring #Sepsis secondary to pneumonia; switched IV antibiotics as below; reviewed the available imaging studies including chest x-rays; reviewed the available cultures; continue monitoring #Acute metabolic/toxic encephalopathy in the setting of sepsis and RONNIE; reviewed the available imaging studies including head CT; still confused; continue monitoring #RONNIE; most likely vasomotor nephropathy; nephrology is following; avoid nephrotoxic agents; continue monitoring #DM type 2; continue insulin sliding scale with hypoglycemia protocol; continue monitoring #Hypertensive heart disease with a grade 1 diastolic dysfunction; continue antihypertensive medications as indicated; reviewed echocardiogram; continue monitoring #Pancytopenia; possibly due to sepsis; droplet precautions; continue monitor #NSTEMI; most likely demand ischemia; type 2 [place]; in the setting of sepsis; asymptomatic; continue monitoring #Enterococcus faecalis UTI; urine culture reviewed; continue IV levofloxacin; continue monitoring #Gout; no flare; continue allopurinol; continue monitoring #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 The patient and her son refused [facility] SNF placement in [place] and requested home health. Sterile Process Coordinator and [facility] were informed. To be discharged home with home health when arranged by [facility]. Late Entry. This medical document was created using an electronic medical record system with computerized dictation system. Although this document has been carefully reviewed, there might still be some phonetic and typographical errors. These areas are purely typographical due to imperfections of the software programs, and do not reflect any compromise in the patient's medical care. Plan discussed with: Patient, Son, Other (Nurse) My Orders Orders - BARBY DINH MD Procedure Category Date Status Time Potassium Effervesent PHA 04/02/24 Transmitted Tab (Klor-Con/Ef) 15:30 Magnesium Anmol PHA 04/02/24 Transmitted 16:00 Basic Metabolic Panel LAB 04/03/24 Verified 04:00 Complete Blood Count LAB 04/03/24 Verified 04:00 Magnesium LAB 04/03/24 Verified 04:00 Date of Service: Apr 02, 2024 Billing Provider: BARBY DINH MD Common Visit Codes: [id number] INP/OBS CARE(HIGH) BARBY DINH MD Apr 02, 2024 15:29
[2024-04-02] MEDS: POTASSIUM EFFERVESENT TAB 25 MEQ PO ONE (16:12)
[2024-04-02] MEDS ORDERED: guaiFENesin 200 MG/10 ML UD PO PRN (16:15)
[2024-04-02] MEDS: MAGNESIUM SULFATE 1GM/100ML 100 ML IV ONE (16:15)
[2024-04-02] MEDS: ACETAMINOPHEN 325 MG TAB PO PRN (16:28)
[2024-04-03] VITALS (7 sets, daily range): BP systolic 125–154; BP diastolic 42–66; PULSE 77–95; RESP 16–20; TEMP 97.9–98.3; O2SAT 92–100
[2024-04-03 07:37] LABS: Basophils # (auto) 0 10 ^3/uL (0-0.2); Basophils % (auto) 0.1 % (0.0-2.0); Eosinophils # (auto) 0.1 10 ^3/uL (0-0.8); Eosinophils % (auto) 0.7 % (0.0-7.0); Hematocrit 26.6 % (36.0-46.0); Hemoglobin 8.8 g/dL (12.2-16.2); Lymphocytes # (auto) 0.6 10 ^3/uL (0.4-5.4); Lymphocytes % (auto) 7.8 % (10.0-50.0); Mean Corpuscular Hemoglobin 30.6 pg (28.0-32.0); Mean Corpuscular Hgb Conc. 33.1 g/dL (32.0-36.0); Mean Corpuscular Volume 92.3 fL (80.0-100.0); Monocytes # (auto) 0.3 10 ^3/uL (0-1.3); Monocytes % (auto) 4.5 % (0.0-12.0); Neutrophils # (auto) 6.4 10 ^3/uL (1.6-8.6); Neutrophils % (auto) 86.9 % (37.0-80.0); Nucleated Red Blood Cells % 0.1 %; Platelet Count (auto) 212 10^3/uL (140-450); Red Blood Cells 2.89 10^6/uL (4.0-5.20); Red Cell Distribution Width 15.4 % (11.8-14.3); White Blood Cell 7.4 10^3/uL (4.4-10.8)
[2024-04-03 07:55] LABS: Anion Gap 9 (5-15); Carbon Dioxide 28 mmol/L (20-31); Chloride 101 mmol/L (98-107); Sodium 138 mmol/L (136-145)
[2024-04-03 07:58] LABS: Potassium 2.9 mmol/L (3.5-5.1)
[2024-04-03 08:01] LABS: BUN/Creatinine Ratio 16.5 (10.0-20.0); Blood Urea Nitrogen 19 mg/dL (9-23)
[2024-04-03 08:09] LABS: Glucose 118 mg/dL (74-106); Magnesium 1.5 mg/dL (1.6-2.6)
--- NOTE | 2024-04-03 11:35 | DVHPN2 ---
Subjective Did not share any new complaints; still wondering about discharge placement; discussed that this is arranged by [facility]; the patient's daughter was at bedside Reviewed: Care Plan, H&P, Labs, Medications, Previous Orders, Radiology, Other (Consultations) Changes from previous H/P or p: No Changes Objective Vitals Vital Signs Date Time Temp Pulse Resp B/P (MAP) Pulse Ox O2 Delivery O2 Flow Rate FiO2 04/03/24 09:29 95 145/53 04/03/24 08:46 97.9 20 98 97.9 04/02/24 20:00 Nasal Cannula* 2 28 Intake/Output Intake and Output 04/03/24 07:00 Intake Total 1010 ml Output Total 750 ml Balance 260 ml Intake Oral 860 ml IV Total 150 ml Output Urine Total 750 ml General Appearance: Cooperative, No acute distress, Other (Confused) HEENT: Other (Very hard hearing; lacking hearing aids) Lungs: Other (Decreased air entry bilaterally with scattered wheezing and crackles) Cardiovascular: Regular rate, Normal S1, Normal S2 Abdomen: Normal bowel sounds, Soft, No tenderness Genitourinary: Other (Nino's) Neuro: Normal speech, Cranial nerves 3-12 NL Medications Current Medications Medications Dose Ordered Sig/Michael Route Start Time Stop Time Status Last Admin Dose Admin Heparin Sodium (Porcine) 5,000 units Q12HR SC 03/26/24 22:00 04/03/24 09:46 5,000 UNITS Sodium Chloride 10 ml Q8HR IV 03/26/24 22:00 04/03/24 05:14 10 ML Acetaminophen/ Hydrocodone Bitart 1 tab Q4HP PRN PO 03/26/24 17:00 Ondansetron HCl 4 mg Q4HP PRN IV 03/26/24 17:00 Docusate Sodium 100 mg BIDPRN PRN PO 03/26/24 17:00 Acetaminophen 650 mg Q6HP PRN PO 03/26/24 17:00 04/02/24 16:28 650 MG Nitroglycerin 0.4 mg Q5MINP PRN SL 03/26/24 17:00 Morphine Sulfate 2 mg Q30M PRN IV 03/26/24 17:00 Diagnostic Test (Pha) 1 strip Q6HR 03/27/24 12:00 04/03/24 05:14 1 STRIP Insulin Human Regular Q6HR SC 03/27/24 12:00 04/03/24 00:54 2 UNITS Dextrose 50 ml UD PRN IV 03/27/24 10:00 Metoprolol Succinate 25 mg DAILY PO 03/28/24 10:00 04/03/24 09:29 25 MG Allopurinol 100 mg DAILY PO 03/29/24 10:00 04/03/24 09:29 100 MG Famotidine 10 mg DAILY PO 03/29/24 10:00 04/03/24 09:30 10 MG Lactated Ringer's 1,000 ml @ 50 mls/hr Q20H IV 03/29/24 09:45 04/03/24 09:29 50 MLS/HR Throat Lozenges 1 mahendra Q6HPRN PRN MT 03/31/24 16:30 04/02/24 16:12 1 MAHENDRA Levofloxacin 50 ml @ 50 mls/hr DAILY@2200 IV 03/31/24 22:00 Guaifenesin 200 mg Q4HP PRN PO 04/02/24 16:15 Laboratory Results Laboratory Tests 04/03/24 07:08 Chemistry Test 04/03/24 07:08 Calcium Level 9.0 mg/dL (8.7-10.4) Magnesium Level 1.5 mg/dL (1.6-2.6) L Urinalysis Test 03/27/24 11:18 Urine Color Light-yellow (Yellow) Urine Clarity Clear (Clear) Urine pH 5.5 (5.0-9.0) Urine Specific [place] 1.012 (1.001-1.035) Urine Protein 2+ (Negative) H Urine Ketones Negative (Negative) Urine Blood 2+ /uL (Negative) H Urine Nitrite Negative (Negative) Urine Bilirubin Negative (Negative) Urine Urobilinogen Normal mg/dL (Negative) Urine Leukocyte Esterase Negative /uL (Negative) Urine RBC 9 /hpf (0 - 4) Urine WBC 2 /hpf (0 - 5) Urine WBC Clumps Present /hpf (None Seen) Urine Squamous Epithelial Cells Few /hpf (<5) Urine Amorphous Crystals Few /hpf (None Seen) Urine Bacteria Few /hpf (None Seen) H Urine Yeast (Budding) Occasional /hpf (None Urine Creatinine 38.11 mg/dL (30.0-125.0) Urine Protein/Creatinine Ratio 5.40 Urine Sodium 30 mmol/L (40-220) L Urine Glucose 4+ mg/dL (Normal) H Urine Total Protein 205.8 mg/dL (1-14) H Microbiology Microbiology Date/Time Source Procedure Growth Status 03/28/24 16:14 Urine - [place] Urine Culture - Final Enterococcus faecalis Complete 03/27/24 13:28 Blood Blood Culture - Final NO GROWTH AFTER 5 DAYS OF INCUBATION. Complete Labs and/or images reviewed: Labs reviewed by me, Image(s) reviewed by me Assessment/Plan Assessment/Plan Covering Dr. Hernandez: #Acute hypoxic respiratory failure due to pneumonia; continue oxygen therapy as needed; continue monitoring #Sepsis secondary to pneumonia; switched IV antibiotics as below; reviewed the available imaging studies including chest x-rays; reviewed the available cultures; continue monitoring #Acute metabolic/toxic encephalopathy in the setting of sepsis and RONNIE; reviewed the available imaging studies including head CT; still confused; continue monitoring #RONNIE; most likely vasomotor nephropathy; nephrology is following; avoid nephrotoxic agents; continue monitoring #DM type 2; continue insulin sliding scale with hypoglycemia protocol; continue monitoring #Hypokalemia, and hypomagnesemia; most likely related to decreased oral intake; replace electrolytes as indicated; continue monitoring #Hypertensive heart disease with a grade 1 diastolic dysfunction; continue antihypertensive medications as indicated; reviewed echocardiogram; continue monitoring #Pancytopenia; possibly due to sepsis; droplet precautions; continue monitor #NSTEMI; most likely demand ischemia; type 2 [place]; in the setting of sepsis; asymptomatic; continue monitoring #Enterococcus faecalis UTI; urine culture reviewed; continue IV levofloxacin; continue monitoring #Gout; no flare; continue allopurinol; continue monitoring #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 regarding discharge placement; either SNF in [facility] or home health with home PT. [employer]er is following. Late Entry. This medical document was created using an electronic medical record system with computerized dictation system. Although this document has been carefully reviewed, there might still be some phonetic and typographical errors. These areas are purely typographical due to imperfections of the software programs, and do not reflect any compromise in the patient's medical care. Plan discussed with: Patient, Daughter, Other (Nurse) My Orders Orders - BARBY DINH MD Procedure Category Date Status Time Guaifenesin Plain PHA 04/02/24 In Process Liquid (Robitussin [place] 16:15 Potassium Effervesent PHA 04/03/24 Transmitted Tab (Klor-Con/Ef) 11:45 Potassium Effervesent PHA 04/03/24 Transmitted Tab (Klor-Con/Ef) 22:00 Potassium Chl Anmol PHA 04/03/24 Transmitted KCL 16:00 Magnesium Anmol PHA 04/03/24 Transmitted 12:00 Date of Service: Apr 03, 2024 Billing Provider: BARBY DINH MD Common Visit Codes: [id number] INP/OBS CARE(HIGH) BARBY DINH MD Apr 03, 2024 11:35
[2024-04-03] MEDS: MAGNESIUM SULFATE 1GM/100ML 100 ML IV SCH (12:28)
[2024-04-03] MEDS: POTASSIUM EFFERVESENT TAB 25 MEQ PO ONE (12:56)
[2024-04-03] MEDS: POTASSIUM CHLORIDE 40 MEQ, LIDOCAINE 1% (LOCAL ANESTH.) 4 ML in SODIUM CHL 0.9% 250 ML IV ONE (17:24)
[2024-04-03] MEDS: POTASSIUM EFFERVESENT TAB 25 MEQ PO SCH (22:09)
[2024-04-04 01:00] VITALS: BP 118/47; PULSE 81; RESP 18; TEMP 98; O2SAT 100
[2024-04-04 05:00] VITALS: BP 98/50; PULSE 77; RESP 18; TEMP 98.2; O2SAT 94
[2024-04-04 09:00] VITALS: BP 122/60; PULSE 87; RESP 17; TEMP 98; O2SAT 99
--- NOTE | 2024-04-04 10:32 | DVHPN2 ---
Subjective Patient doing better. No new issues. Has not used oxygen. Daughter is not at bedside. Requesting to go home with PT. Reviewed: Care Plan, H&P, Labs, Medications, Previous Orders, Radiology, Other (Consultations) Changes from previous H/P or p: No Changes General: No Chills, No Night Sweats, No Fatigue Neurological: No Numbness Eyes: No Vision change Cardiovascular: No Chest Pain Respiratory: Cough Gastrointestinal: No Nausea, No Vomiting Genitourinary: No Dysuria Skin: No Rash Objective Vitals Vital Signs Date Time Temp Pulse Resp B/P (MAP) Pulse Ox O2 Delivery O2 Flow Rate FiO2 04/04/24 09:51 87 122/60 04/04/24 09:00 98.0 17 99 98.0 04/03/24 20:00 Nasal Cannula* 2 28 Intake/Output Intake and Output 04/04/24 07:00 Intake Total 1920 ml Output Total 2400 ml Balance -480 ml Intake Oral 1520 ml IV Total 400 ml Output Urine Total 2400 ml # Bowel Movements 1 General Appearance: Cooperative, No acute distress, Other (Confused) HEENT: Other (Very hard hearing; lacking hearing aids) Lungs: Other (Poor Perfusion. Bilateral Lower airway crackles. ) Cardiovascular: Regular rate, Normal S1, Normal S2 Abdomen: Normal bowel sounds, Soft, No tenderness Genitourinary: Other (Nino's) Neuro: Normal speech, Cranial nerves 3-12 NL Medications Current Medications Medications Dose Ordered Sig/Michael Route Start Time Stop Time Status Last Admin Dose Admin Heparin Sodium (Porcine) 5,000 units Q12HR SC 03/26/24 22:00 04/04/24 10:00 5,000 UNITS Sodium Chloride 10 ml Q8HR IV 03/26/24 22:00 04/04/24 06:54 10 ML Acetaminophen/ Hydrocodone Bitart 1 tab Q4HP PRN PO 03/26/24 17:00 Ondansetron HCl 4 mg Q4HP PRN IV 03/26/24 17:00 Docusate Sodium 100 mg BIDPRN PRN PO 03/26/24 17:00 Acetaminophen 650 mg Q6HP PRN PO 03/26/24 17:00 04/02/24 16:28 650 MG Nitroglycerin 0.4 mg Q5MINP PRN SL 03/26/24 17:00 Morphine Sulfate 2 mg Q30M PRN IV 03/26/24 17:00 Diagnostic Test (Pha) 1 strip Q6HR 03/27/24 12:00 04/04/24 06:54 1 STRIP Insulin Human Regular Q6HR SC 03/27/24 12:00 04/03/24 22:11 3 UNITS Dextrose 50 ml UD PRN IV 03/27/24 10:00 Metoprolol Succinate 25 mg DAILY PO 03/28/24 10:00 04/04/24 09:51 25 MG Allopurinol 100 mg DAILY PO 03/29/24 10:00 04/04/24 09:49 100 MG Famotidine 10 mg DAILY PO 03/29/24 10:00 04/04/24 09:48 10 MG Lactated Ringer's 1,000 ml @ 50 mls/hr Q20H IV 03/29/24 09:45 04/04/24 06:53 50 MLS/HR Throat Lozenges 1 mahendra Q6HPRN PRN MT 03/31/24 16:30 04/02/24 16:12 1 MAHENDRA Levofloxacin 50 ml @ 50 mls/hr DAILY@2200 IV 03/31/24 22:00 Guaifenesin 200 mg Q4HP PRN PO 04/02/24 16:15 Potassium Bicarbonate 50 meq BID PO 04/03/24 22:00 04/04/24 09:55 50 MEQ Laboratory Results Laboratory Tests 04/03/24 07:08 Urinalysis Test 03/27/24 11:18 Urine Color Light-yellow (Yellow) Urine Clarity Clear (Clear) Urine pH 5.5 (5.0-9.0) Urine Specific [place] 1.012 (1.001-1.035) Urine Protein 2+ (Negative) H Urine Ketones Negative (Negative) Urine Blood 2+ /uL (Negative) H Urine Nitrite Negative (Negative) Urine Bilirubin Negative (Negative) Urine Urobilinogen Normal mg/dL (Negative) Urine Leukocyte Esterase Negative /uL (Negative) Urine RBC 9 /hpf (0 - 4) Urine WBC 2 /hpf (0 - 5) Urine WBC Clumps Present /hpf (None Seen) Urine Squamous Epithelial Cells Few /hpf (<5) Urine Amorphous Crystals Few /hpf (None Seen) Urine Bacteria Few /hpf (None Seen) H Urine Yeast (Budding) Occasional /hpf (None Urine Creatinine 38.11 mg/dL (30.0-125.0) Urine Protein/Creatinine Ratio 5.40 Urine Sodium 30 mmol/L (40-220) L Urine Glucose 4+ mg/dL (Normal) H Urine Total Protein 205.8 mg/dL (1-14) H Microbiology Microbiology Date/Time Source Procedure Growth Status 03/28/24 16:14 Urine - [place] Urine Culture - Final Enterococcus faecalis Complete 03/27/24 13:28 Blood Blood Culture - Final NO GROWTH AFTER 5 DAYS OF INCUBATION. Complete Assessment/Plan Assessment/Plan ##Acute hypoxic respiratory failure due to pneumonia; - Convert patient to Azitro - Repeat CXR, if no improvement obtain CT scan. - Cont PT #Sepsis secondary to pneumonia; switched IV antibiotics as below; reviewed the available imaging studies including chest x-rays; reviewed the available cultures; - plan as above. #Acute metabolic/toxic encephalopathy in the setting of sepsis and RONNIE; reviewed the available imaging studies including head CT - IMPROVED - monitor #RONNIE; most likely vasomotor nephropathy; nephrology is following; avoid nephrotoxic agents; continue monitoring - IMPROVED #DM type 2; - continue insulin sliding scale with hypoglycemia protocol; continue monitoring #Hypokalemia, and hypomagnesemia; most likely related to decreased oral intake; She is not Taking Oral K as prescribed. - Check BMP today #Hypertensive heart disease with a grade 1 diastolic dysfunction; continue antihypertensive medications as indicated; reviewed echocardiogram; continue monitoring #Pancytopenia; possibly due to sepsis; droplet precautions; continue monitor -IMPROVED #Anemia - #NSTEMI; most likely demand ischemia; type 2 MA; in the setting of sepsis; asymptomatic; continue monitoring #Enterococcus faecalis UTI; urine culture reviewed; - Place on Amox. #Gout; no flare; continue allopurinol; continue monitoring #Malnutrition; industrial court magistrate onboard; encouraged the patient to increase oral intake; continue monitoring Pending arrangement by [facility] regarding discharge placement; either SNF in [facility] or home health with home PT. [employer] is following. Plan discussed with: Patient Date of Service: Apr 04, 2024 Billing Provider: SID FRIEDMAN MD Common Visit Codes: [id number] INP/OBS CARE([facility]) SID FRIEDMAN MD Apr 04, 2024 10:32
--- NOTE | 2024-04-04 12:19 | DVH ---
CHEST RADIOGRAPH Indication: continued infiltrate. Technique: Single frontal view of the chest was obtained COMPARISON: XY CHEST PORTABLE on DOS: 03/30/24, XY CHEST PORTABLE on DOS: 03/28/24, XY CHEST PORTABLE on DOS: 03/26/24 FINDINGS: Lines and Tubes: None Lungs: Multifocal airspace disease. Pleura: No effusion. No pneumothorax. Cardiomediastinal contours: Unremarkable Bones: Unremarkable IMPRESSION: Multifocal airspace disease.
[2024-04-04 13:00] VITALS: BP 147/45; PULSE 88; RESP 16; TEMP 97.4; O2SAT 92
[2024-04-04 14:39] LABS: Basophils # (auto) 0 10 ^3/uL (0-0.2); Basophils % (auto) 0.2 % (0.0-2.0); Eosinophils # (auto) 0 10 ^3/uL (0-0.8); Eosinophils % (auto) 0.5 % (0.0-7.0); Hematocrit 26.5 % (36.0-46.0); Hemoglobin 8.6 g/dL (12.2-16.2); Lymphocytes # (auto) 0.4 10 ^3/uL (0.4-5.4); Mean Corpuscular Hemoglobin 30.1 pg (28.0-32.0); Mean Corpuscular Hgb Conc. 32.4 g/dL (32.0-36.0); Mean Corpuscular Volume 92.8 fL (80.0-100.0); Monocytes # (auto) 0.4 10 ^3/uL (0-1.3); Monocytes % (auto) 4.9 % (0.0-12.0); Neutrophils # (auto) 6.4 10 ^3/uL (1.6-8.6); Neutrophils % (auto) 88.4 % (37.0-80.0); Nucleated Red Blood Cells % 0.1 %; Platelet Count (auto) 232 10^3/uL (140-450); Red Blood Cells 2.85 10^6/uL (4.0-5.20); Red Cell Distribution Width 15.4 % (11.8-14.3); White Blood Cell 7.3 10^3/uL (4.4-10.8)
[2024-04-04 14:49] LABS: Anion Gap 5 (5-15); Carbon Dioxide 30 mmol/L (20-31); Chloride 99 mmol/L (98-107)
[2024-04-04 14:54] LABS: BUN/Creatinine Ratio 12.4 (10.0-20.0); Blood Urea Nitrogen 14 mg/dL (9-23); Calcium 8.6 mg/dL (8.7-10.4); Glucose 203 mg/dL (74-106); Potassium 3.3 mmol/L (3.5-5.1); Sodium 134 mmol/L (136-145)
--- NOTE | 2024-04-04 16:34 | DVH ---
Procedure: CT CHEST WITHOUT CONTRAST Reason for study/Clinical History: Multifocal opacity, limited improvement on ABX. R/o Pulm Ca Comparison Study: None available at time of dictation. Exam Date: 04/04/2024 04:12 PM TECHNIQUE: Multidetector CT of the chest was performed from the lung apices to the upper abdomen with out the use of intravenous contract. Axial, coronal and sagittal multiplanar reformats were performed . Radiation Dose Information: CT Dose: CTDI volume is 10.58 mGy. Dose-length product is 384.26 mGy*cm The dose indicators for CT are the volume Computed Tomography (CT) Dose Index (CTDIvol) and the Dose Length Product (DLP), and are measured in units of mGy and mGy-cm, respectively. These indicators are not patient dose, but values generated from the CT scanner acquisition factors. The report includes radiation exposure data for exposures received during this examination. FINDINGS: Lower neck: Normal thyroid. Lungs: Multiple spiculated masses noted bilaterally worrisome for metastatic disease. Small bilateral pleural effusions and bibasilar areas of atelectasis. Heart/Vascular Structures: Normal heart size. No pericardial effusion. Lymph Nodes: No adenopathy Pleura: No pleural effusion or significant pneumothorax. Musculoskeletal: No acute osseous abnormality. Soft tissues: Normal. Upper abdomen: Limited portions of the upper abdomen are unremarkable. IMPRESSION: 1. Multiple bilateral spiculated masses with areas of pleural thickening and bibasilar small pleural effusions with areas of atelectasis. 2. Findings worrisome for metastatic disease consider PET scan for further evaluation. Radiation optimization: All CT scans at this facility use at least one of these dose optimization ally hniques: automated exposure control mA and/or kV adjustment per patient size (includes targeted exam s where dose is matched to clinical indication) or iterative reconstruction.
[2024-04-04] MEDS: AZITHROMYCIN 250 MG TAB PO ONE (16:54)
[2024-04-04] MEDS: AMOXICILLIN TRIHYDRATE 250 MG CAP PO ONE (16:54)
[2024-04-04 17:00] VITALS: BP 123/48; PULSE 90; RESP 16; TEMP 98; O2SAT 95
[2024-04-04 21:00] VITALS: BP 148/54; PULSE 98; RESP 18; TEMP 98; O2SAT 92
[2024-04-04] MEDS: AMOXICILLIN TRIHYDRATE 250 MG CAP PO SCH (22:29)
[2024-04-05 01:00] VITALS: BP 128/62; PULSE 87; RESP 17; TEMP 98.1; O2SAT 96
[2024-04-05 04:53] VITALS: BP 142/56; PULSE 89; RESP 17; TEMP 98.5; O2SAT 93
[2024-04-05 06:12] LABS: Anion Gap 6 (5-15); Carbon Dioxide 31 mmol/L (20-31); Chloride 99 mmol/L (98-107)
[2024-04-05 06:16] LABS: Calcium 8.7 mg/dL (8.7-10.4); Potassium 3.3 mmol/L (3.5-5.1); Sodium 136 mmol/L (136-145)
[2024-04-05 06:18] LABS: BUN/Creatinine Ratio 11.3 (10.0-20.0); Blood Urea Nitrogen 12 mg/dL (9-23); Glucose 75 mg/dL (74-106)
[2024-04-05 06:33] LABS: Magnesium 1.5 mg/dL (1.6-2.6)
[2024-04-05 09:00] VITALS: BP 155/66; PULSE 90; RESP 16; TEMP 98.1; O2SAT 94
[2024-04-05] MEDS: AZITHROMYCIN 250 MG TAB PO SCH (09:46)
--- NOTE | 2024-04-05 10:42 | DVHPN2 ---
Progress Note Date Seen: Apr 05, 2024 Medical Necessity Reason Pt with a Central, PICC or Fol: Yes The following are medically ne: Kay Catheter Reason for kay catheter: Strict I&O Subjective Patient reports: No new complaints Review of Systems: HEENT:Normal, CVS:Normal, RESPIRATORY:Normal, GI:Normal, :Normal, MSK:Normal, NEURO:Normal Objective vital signs Vital Sign Date Time Temp Pulse Resp B/P (MAP) Pulse Ox O2 Delivery O2 Flow Rate FiO2 04/05/24 09:47 90 155/66 04/05/24 09:00 98.1 16 94 98.1 04/04/24 20:00 Room Air* 0 21 Total Intake and Output 04/04/24 04/04/24 04/05/24 15:00 23:00 07:00 Intake Total 300 ml 750 ml Balance 300 ml 750 ml medications Current Medications Medications Dose Ordered Sig/Michael Route Start Time Stop Time Status Last Admin Dose Admin Heparin Sodium (Porcine) 5,000 units Q12HR SC 03/26/24 22:00 04/05/24 09:55 5,000 UNITS Sodium Chloride 10 ml Q8HR IV 03/26/24 22:00 04/05/24 05:17 10 ML Ondansetron HCl 4 mg Q4HP PRN IV 03/26/24 17:00 Docusate Sodium 100 mg BIDPRN PRN PO 03/26/24 17:00 Acetaminophen 650 mg Q6HP PRN PO 03/26/24 17:00 04/02/24 16:28 650 MG Nitroglycerin 0.4 mg Q5MINP PRN SL 03/26/24 17:00 Diagnostic Test (Pha) 1 strip Q6HR 03/27/24 12:00 04/05/24 05:17 1 STRIP Insulin Human Regular Q6HR SC 03/27/24 12:00 04/05/24 00:14 6 UNITS Dextrose 50 ml UD PRN IV 03/27/24 10:00 Metoprolol Succinate 25 mg DAILY PO 03/28/24 10:00 04/05/24 09:47 25 MG Allopurinol 100 mg DAILY PO 03/29/24 10:00 04/05/24 09:47 100 MG Famotidine 10 mg DAILY PO 03/29/24 10:00 04/05/24 09:47 10 MG Lactated Ringer's 1,000 ml @ 50 mls/hr Q20H IV 03/29/24 09:45 04/04/24 06:53 50 MLS/HR Throat Lozenges 1 mahendra Q6HPRN PRN MT 03/31/24 16:30 04/05/24 09:47 1 MAHENDRA Levofloxacin 50 ml @ 50 mls/hr DAILY@2200 IV 03/31/24 22:00 Guaifenesin 200 mg Q4HP PRN PO 04/02/24 16:15 Potassium Bicarbonate 50 meq BID PO 04/03/24 22:00 04/05/24 09:46 50 MEQ Azithromycin 250 mg DAILY PO 04/05/24 10:00 04/07/24 11:00 04/05/24 09:46 250 MG Amoxicillin 500 mg BID PO 04/04/24 22:00 04/09/24 21:59 04/05/24 09:46 500 MG Examination: GENERAL:Normal, HEENT:Normal, NECK:Normal, LUNGS:Normal, CVS:Normal, ABDOMEN:Normal, MSK:Normal, SKIN:Normal, NEURO:Normal, :Normal laboratory and microbiology Laboratory Tests 04/05/24 05:14 04/04/24 14:00 Test 04/05/24 05:14 Range/Units Serum Glucose 75 74-106 mg/dL Microbiology Date/Time Source Procedure Growth Status 03/28/24 16:14 Urine - [place] Urine Culture - Final Enterococcus faecalis Complete 03/27/24 13:28 Blood Blood Culture - Final NO GROWTH AFTER 5 DAYS OF INCUBATION. Complete Problem List/Assessment/Plan Problem List/Assessment/Plan #1 acute resp failure: cont oxygen #2 sepsis with pneumonia: iv antibiotics #3 acute renal failure ? vasomotor nephropathy: usg, ivf #4 dm: ssi #5 htn #6 encephalopathy- toxic/metabolic #7 anemia/leukopenia #8 nstemi ?type 2 #9 uti: culture #10 metastatic lung cancer will have family meeting today advance care planning- full code- time spent 19 mins Plan discussed with: Patient My Orders My Orders Orders - SHANAE BRYAN MD Procedure Category Date Status Time Potassium Er Tablet PHA 04/05/24 Verified (Klor-Con Tablet) 10:45 Dietary Evaluation Review Comments: 1. Renal Specific-40g protein 2gNA 3K, Lo phos and CCHO-60 diet, if no dialysis treatment. 2. Renal Standard 2gNA, 3K Lo phos and CCHO-60 diet if pt starts dialysis. Expected Outcomes/Goals: controlled DM, less uremic symptoms Date of Service: Apr 05, 2024 Billing Provider: SHANAE BRYAN MD Common Visit Codes: [id number] INP/OBS CARE([facility]) SHANAE BRYAN MD Apr 05, 2024 10:41
[2024-04-05] MEDS: POTASSIUM CHL 20 Meq TABLET PO ONE (12:08)
[2024-04-05 13:00] VITALS: BP 138/54; PULSE 83; RESP 16; TEMP 98.1; O2SAT 96
--- NOTE | 2024-04-05 13:27 | DVHDS2 ---
Discharge Summary Date of Admission Mar 26, 2024 at 16:54 Date of Discharge: Apr 05, 2024 Labs/Diagnostic Data: Laboratory Results Test 04/05/24 11:35 04/05/24 05:14 04/04/24 14:00 03/31/24 04:54 POC Glucose 231 mg/dl (70-106) Sodium Level 136 mmol/L (136-145) Potassium Level 3.3 mmol/L (3.5-5.1) Chloride Level 99 mmol/L (98-107) Carbon Dioxide Level 31 mmol/L (20-31) Anion Gap 6 (5-15) Blood Urea Nitrogen 12 mg/dL (9-23) Creatinine 1.06 mg/dL (0.550-1.02) Glomerular Filtration Rate Calc 52 mL/min (>90) BUN/Creatinine Ratio 11.3 (10.0-20.0) Serum Glucose 75 mg/dL (74-106) Calcium Level 8.7 mg/dL (8.7-10.4) Magnesium Level 1.5 mg/dL (1.6-2.6) White Blood Count 7.3 10^3/uL (4.4-10.8) Red Blood Count 2.85 10^6/uL (4.0-5.20) Hemoglobin 8.6 g/dL (12.2-16.2) Hematocrit 26.5 % (36.0-46.0) Mean Corpuscular Volume 92.8 fL (80.0-100.0) Mean Corpuscular Hemoglobin 30.1 pg (28.0-32.0) Mean Corpuscular Hemoglobin Concent 32.4 g/dL (32.0-36.0) Red Cell Distribution Width 15.4 % (11.8-14.3) Platelet Count 232 10^3/uL (140-450) Mean Platelet Volume 10.4 fL (6.9-10.8) Neutrophils (%) (Auto) 88.4 % (37.0-80.0) Lymphocytes (%) (Auto) 6.0 % (10.0-50.0) Monocytes (%) (Auto) 4.9 % (0.0-12.0) Eosinophils (%) (Auto) 0.5 % (0.0-7.0) Basophils (%) (Auto) 0.2 % (0.0-2.0) Neutrophils # (Auto) 6.4 10 ^3/uL (1.6-8.6) Lymphocytes # (Auto) 0.4 10 ^3/uL (0.4-5.4) Monocytes # (Auto) 0.4 10 ^3/uL (0-1.3) Eosinophils # (Auto) 0 10 ^3/uL (0-0.8) Basophils # (Auto) 0 10 ^3/uL (0-0.2) Nucleated Red Blood Cells 0.1 % Total Bilirubin 0.9 mg/dL (0.2-1.0) Aspartate Amino Transferase (AST) 33 U/L (13-40) Alanine Aminotransferase (ALT) 39 U/L (7-40) Alkaline Phosphatase 74 U/L (46-116) Total Protein 5.9 g/dL (5.7-8.2) Albumin 3.1 g/dL (3.2-4.8) Test 03/28/24 04:45 03/27/24 11:18 03/27/24 05:00 03/26/24 22:49 Differential Total Cells Counted 100.0 (100) Neutrophils % (Manual) 93 (37.0-80.0) Band Neutrophils % (Manual) 0 Lymphocytes % (Manual) 7 (10.0-50.0) Monocytes % (Manual) 0 (0-12) Eosinophils % (Manual) 0 (0-7) Basophils % (Manual) 0 (0.0-2.0) Metamyelocytes % (manual) 0 Myelocytes % (Manual) 0 Promyelocytes % (Manual) 0 Blast Cells % (Manual) 0 Reactive Lymphocytes 0 Platelet Estimate Adequate Anisocytosis (manual) Slight Ovalocytes Few Prothrombin Time 10.4 sec (9.3-11.8) Prothrombin Time INR 0.98 (0.9-1.15) Activated Partial Thromboplast Time 34.2 SEC (24.5-34.5) Hemoglobin A1c 6.8 % A1C (<5.7) Thyroid Stimulating Hormone (TSH) 0.09 uIU/mL (0.55-4.78) Urine Color Light-yellow (Yellow) Urine Clarity Clear (Clear) Urine pH 5.5 (5.0-9.0) Urine Specific [place] 1.012 (1.001-1.035) Urine Protein 2+ (Negative) Urine Ketones Negative (Negative) Urine Blood 2+ /uL (Negative) Urine Nitrite Negative (Negative) Urine Bilirubin Negative (Negative) Urine Urobilinogen Normal mg/dL (Negative) Urine Leukocyte Esterase Negative /uL (Negative) Urine RBC 9 /hpf (0 - 4) Urine WBC 2 /hpf (0 - 5) Urine WBC Clumps Present /hpf (None Seen) Urine Squamous Epithelial Cells Few /hpf (<5) Urine Amorphous Crystals Few /hpf (None Seen) Urine Bacteria Few /hpf (None Seen) Urine Yeast (Budding) Occasional /hpf (None Urine Creatinine 38.11 mg/dL (30.0-125.0) Urine Protein/Creatinine Ratio 5.40 Urine Sodium 30 mmol/L (40-220) Urine Glucose 4+ mg/dL (Normal) Urine Total Protein 205.8 mg/dL (1-14) Uric Acid 6.0 mg/dL (3.1-7.8) Phosphorus Level 2.8 mg/dL (2.4-5.1) Vitamin D 25-Hydroxy 28.7 ng/mL (30.0-100) Parathyroid Hormone (Intact) 49.2 pg/mL (18.4-80.1) Troponin I High Sensitivity 581 ng/L (</=34) Test 03/26/24 19:53 03/26/24 19:20 03/26/24 10:59 Lactic Acid Level 1.8 mmol/L (0.4-2.0) Influenza Type A Antigen Negative (Negative) Influenza Type B Antigen Negative (Negative) SARS-CoV-2 Antigen (Rapid) Negative (NEGATIVE) B-Type Natriuretic Peptide 287.97 pg/mL (0-100) Plasma/Serum Blood Alcohol < 3.0 mg/dL (<10) Other Laboratory Tests 04/05/24 05:14 04/04/24 14:00 Brief Hx & Hospital Course: SEE DICTATED NOTE Condition at Discharge: Fair Final Diagnosis/Problems List UTI Discharge Disposition: Home Discharge Instruct/Medications Diet: Consistent carbohydrate, Cardiac 2g Na,low cholest Activity: No Restrictions, As Tolerated Follow Up/Referral: FU WITH PCP IN 1 WK Medications: RESUME HOME MEDS SCRIPT TO PHARMACY Discharge Statement: "Patient was advised to return to the ER or call 911 if any headaches, dizziness, shortness of breath, chest pain, abdominal pain, bleeding, fevers, or worsening of medical condition. Patient was counseled about treatment plan, medications, possible side effects, patientverbalized understanding. All questions were answered to the best of my ability. This discharge took greater then 30 minutes in planning, reviewing documentation, counseling the patient, and discussing with other team members." ASSESSMENT ASSESSMENT Assessment UTI Date of Service: Apr 05, 2024 Billing Provider: SHANAE BRYAN MD Common Visit Codes: [id number] DISCH DAY >30min SHANAE BRYAN MD Apr 05, 2024 13:27
[2024-04-05] MEDS ORDERED: AMOX500T86 PO (13:30)
--- NOTE | 2024-04-05 14:05 | DVHDS ---
DATE OF DISCHARGE: 04/05/2024 The patient is an 83-year-old lady who was admitted after she was found altered and hypoxic and has history of chronic kidney disease, diabetes, and hypertension. HOSPITAL COURSE: The patient was noted to be hypoxic with low white count. The patient had a chest x-ray that showed multiple focal airspace disease. Head CT was negative. The patient's renal ultrasound showed no obstruction. The patient had UTI with Enterococcus faecalis that was sensitive to Augmentin. The patient was also noted to be anemic. The patient had a subsequent CT of chest that showed evidence of multiple bilateral spiculated masses with areas of pleural thickening suggestive of metastatic disease. On breast exam, it appears that the patient may have possible lump in the left breast. The patient's COVID and influenza tests were negative. FINAL DIAGNOSES: * Metastatic lung disease. * Questionable left breast mass. * Acute respiratory failure. * Questionable pneumonia, sepsis was ruled out. * Acute renal failure, questionable vasomotor nephropathy. * Diabetes mellitus. * Hypertension. * Encephalopathy, toxic metabolic. * Anemia with leukopenia. * [id number] myocardial infarction likely type 2. * Urinary tract infection secondary to enterococcus. I discussed this in detail with the patient's daughter and son-in-law and gave them a copy of the CT report. They will follow up at [place]. The patient will also have home physical therapy Time spent in discharge planning and review of plan with the patient and family and nursing was 41 minutes. MD STEPHEN Arrieta/DEXTER TID: [id number] RECEIPT: [id number]
== END 2024-04-05 14:52 | disposition home health service (06) | DRG 177 ==
LOC: ER 10:44 → EDBD 10:44 → TELE 16:54 → TELE-CENTR 21:40 → CENTRAL 04-02 23:53
PROVIDERS: ADMIT Internal Medicine; ATTEND Internal Medicine
DX: J15.69 Pneumonia due to other Gram-negative bacteria (principal); G92.8 Other toxic encephalopathy; I21.A1 Myocardial infarction type 2; J96.01 Acute respiratory failure with hypoxia; N17.0 Acute kidney failure with tubular necrosis; N39.0 Urinary tract infection, site not specified; E87.20 Acidosis, unspecified; E46 Unspecified protein-calorie malnutrition; D61.818 Other pancytopenia; Z68.1 Body mass index [BMI] 19.9 or less, adult; C34.90 Malignant neoplasm of unspecified part of unspecified bronchus or lung; J15.9 Unspecified bacterial pneumonia; Z20.822 Contact with and (suspected) exposure to COVID-19; E11.22 Type 2 diabetes mellitus with diabetic chronic kidney disease; E11.65 Type 2 diabetes mellitus with hyperglycemia; F03.90 Unspecified dementia, unspecified severity, without behavioral disturbance, psychotic disturbance, mood disturbance, and anxiety; I12.9 Hypertensive chronic kidney disease with stage 1 through stage 4 chronic kidney disease, or unspecified chronic kidney disease; I45.10 Unspecified right bundle-branch block; N18.9 Chronic kidney disease, unspecified; B95.2 Enterococcus as the cause of diseases classified elsewhere; E83.42 Hypomagnesemia; E87.6 Hypokalemia; M10.9 Gout, unspecified; Z83.3 Family history of diabetes mellitus; Z82.49 Family history of ischemic heart disease and other diseases of the circulatory system
CPT/HCPCS: 36415; 70450; 71045; 71250; 76775; 80048; 80053; 80320; 81001; 82306; 82570; 82962; 83036; 83605; 83735; 83880; 83970; 84100; 84132; 84156; 84300; 84443; 84484; 84550; 85007; 85025; 85027; 85610; 85730; 87040; 87086; 87088; 87186; 87426; 87804; 93005; 93306; 97110; 97116; 97163; 97530; G0378; J1815; J2003; J3490